=== PATIENT | male | born 1945 | race African-American/Black ===

== ENCOUNTER → 2016-10-26 | Outpatient (CLI) | payer MEDICARE, OTHER ==
[~2016-10-26] MED LIST: AMLO10TA2 OR; ATEN100T OR; CALC-242 OR; HYDR25TA4 OR; HYDROXYCHLOROQUINE PO; LISI40TA OR
[2016-10-26 09:26] LABS: Basophils # (auto) 0.1 uL; Basophils % (auto) 2.2 % (0.0-2.0); Eosinophils # (auto) 0.1 uL; Eosinophils % (auto) 1.6 % (0.0-7.0); Hematocrit 45.9 % (41.0-53.0); Hemoglobin 15.3 g/dL (13.5-17.5); Lymphocytes # (auto) 1.2 uL; Lymphocytes % (auto) 30.2 % (10.0-50.0); Mean Corpuscular Hemoglobin 32.2 pg (28.0-32.0); Mean Corpuscular Hgb Conc. 33.4 g/dL (32.0-36.0); Mean Corpuscular Volume 96.4 fL (80.0-100.0); Mean Platelet Volume 9.9 fL (7.4-10.4); Monocytes # (auto) 0.6 uL; Platelet Count (auto) 149 10^3/uL (140-450); Red Cell Distribution Width 12.6 % (11.6-16.0)
[2016-10-26 09:44] LABS: Albumin 4.4 g/dL (3.4-5.0); BUN/Creatinine Ratio 15.8; Bilirubin, Total 0.8 mg/dL (0.2-1.0); Potassium 4.3 mmol/L (3.5-5.1); Total Protein 7.7 g/dL (6.4-8.2)
== END | disposition home or self-care (01) ==
LOC: LAB 08:22
DX: L93.0 Discoid lupus erythematosus (principal); I10 Essential (primary) hypertension; M25.50 Pain in unspecified joint; D64.9 Anemia, unspecified
CPT/HCPCS: 36415; 80053; 85025; 85652; 86141

== ENCOUNTER → 2017-08-03 | Outpatient (CLI) | payer MEDICARE, OTHER ==
[2017-08-03 09:02] LABS: Basophils # (auto) 0 uL; Basophils % (auto) 0.7 % (0.0-2.0); Eosinophils # (auto) 0.1 uL; Eosinophils % (auto) 3.3 % (0.0-7.0); Hematocrit 41.9 % (41.0-53.0); Hemoglobin 14.4 g/dL (13.5-17.5); Lymphocytes # (auto) 1.4 uL; Lymphocytes % (auto) 33.7 % (10.0-50.0); Mean Corpuscular Hgb Conc. 34.3 g/dL (32.0-36.0); Mean Corpuscular Volume 96.2 fL (80.0-100.0); Mean Platelet Volume 9.2 fL (6.9-10.8); Monocytes # (auto) 0.5 uL; Monocytes % (auto) 10.8 % (0.0-12.0); Neutrophils # (auto) 2.2 uL; Neutrophils % (auto) 51.5 % (37.0-80.0); Nucleated Red Blood Cells % 0.1 %; Platelet Count (auto) 242 10^3/uL (140-450); Red Cell Distribution Width 13.3 % (11.8-14.3); White Blood Cell 4.2 10^3/uL (4.4-10.8)
[2017-08-03 09:24] LABS: BUN/Creatinine Ratio 16.7; Bilirubin, Total 0.5 mg/dL (0.2-1.0); Calcium 9.4 mg/dL (8.5-10.1); Potassium 3.9 mmol/L (3.5-5.1); Total Protein 7.7 g/dL (6.4-8.2)
== END | disposition home or self-care (01) ==
LOC: LAB 08:29
DX: I10 Essential (primary) hypertension (principal); M10.9 Gout, unspecified; M25.50 Pain in unspecified joint; M06.9 Rheumatoid arthritis, unspecified
CPT/HCPCS: 36415; 80053; 84550; 85025; 85652; 86141; 86160; 86225

== ENCOUNTER → 2018-04-06 | Outpatient (CLI) | payer MEDICARE, OTHER ==
[2018-04-06 09:07] LABS: Cholesterol 153 mg/dL (< 200); HDL Cholesterol 71 mg/dL (40-59); LDL Cholesterol 81 mg/dL (< 100); Triglycerides 46 mg/dL (< 150)
== END | disposition home or self-care (01) ==
LOC: LAB 07:26
PROVIDERS: ATTEND Internal Medicine
DX: I10 Essential (primary) hypertension (principal); L93.0 Discoid lupus erythematosus; M06.9 Rheumatoid arthritis, unspecified; E78.5 Hyperlipidemia, unspecified; Z79.899 Other long term (current) drug therapy
CPT/HCPCS: 36415; 80061; 82306

== ENCOUNTER → 2019-08-10 | Day surgery (SDC) | payer MEDICARE, OTHER ==
[2019-08-07 09:47] LABS: Basophils # (auto) 0 uL; Basophils % (auto) 0.7 % (0.0-2.0); Eosinophils # (auto) 0 uL; Hematocrit 42.3 % (41.0-53.0); Hemoglobin 14.8 g/dL (13.5-17.5); Lymphocytes # (auto) 1.1 uL; Lymphocytes % (auto) 27.5 % (10.0-50.0); Mean Corpuscular Hemoglobin 34.1 pg (28.0-32.0); Mean Corpuscular Hgb Conc. 34.9 g/dL (32.0-36.0); Mean Corpuscular Volume 97.6 fL (80.0-100.0); Monocytes # (auto) 0.5 uL; Monocytes % (auto) 11.8 % (0.0-12.0); Neutrophils # (auto) 2.3 uL; Nucleated Red Blood Cells % 0.2 %; Platelet Count (auto) 137 10^3/uL (140-450); Red Blood Cells 4.34 10^6/uL (4.5-5.90); Red Cell Distribution Width 14.2 % (11.8-14.3); White Blood Cell 3.9 10^3/uL (4.4-10.8)
[2019-08-07 10:06] LABS: INR < 0.93 (0.9-1.15); Partial Thromboplastin Time 26.4 sec (23.64-32.05)
[~2019-08-10] VITALS: Ht 175.3 cm; Wt 72.6 kg
[~2019-08-10] MED LIST changes: +AMLO10TA13 OR; -AMLO10TA2 OR; +SODIUM CHLORIDE LOCK 10 ML ONE; +diphenhdrAMINE HCL 50 MG/1 ML VL ONE
[2019-08-10] MEDS: fentaNYL CITRATE 100 MCG/2 ML VL ONE ×3 (10:31→10:39)
[2019-08-10] MEDS: MIDAZOLAM HCL 5 MG/ML-1ML VIAL ONE ×3 (10:31→10:39)
[2019-08-10 11:15] VITALS: BP 144/83
== END | disposition home or self-care (01) ==
LOC: GI 09:21
PROVIDERS: ATTEND Internal Medicine Gastroenterology
DX: Z12.11 Encounter for screening for malignant neoplasm of colon (principal); D12.3 Benign neoplasm of transverse colon; K64.8 Other hemorrhoids; K57.30 Diverticulosis of large intestine without perforation or abscess without bleeding; Z87.442 Personal history of urinary calculi; Z98.890 Other specified postprocedural states
CPT/HCPCS: 36415; 45380; 85025; 85610; 85730; 88305; J1200; J2250; J3010; J7030; 99153; G0500

== ENCOUNTER → 2022-08-16 | Outpatient (CLI) | payer MEDICARE, OTHER ==
[~2022-08-16] MED LIST changes: +AMLO-496 OR; -AMLO10TA13 OR; -LISI40TA OR; +LISI40TA11 OR; -SODIUM CHLORIDE LOCK 10 ML ONE; -diphenhdrAMINE HCL 50 MG/1 ML VL ONE
[2022-08-16 07:52] LABS: Basophils # (auto) 0 10 ^3/uL (0-0.2); Basophils % (auto) 1.1 % (0.0-2.0); Eosinophils # (auto) 0.1 10 ^3/uL (0-0.8); Eosinophils % (auto) 3.1 % (0.0-7.0); Hematocrit 42.2 % (41.0-53.0); Hemoglobin 14.5 g/dL (13.5-17.5); Lymphocytes # (auto) 1.4 10 ^3/uL (0.4-5.4); Lymphocytes % (auto) 36.4 % (10.0-50.0); Mean Corpuscular Hemoglobin 32.4 pg (28.0-32.0); Mean Corpuscular Hgb Conc. 34.3 g/dL (32.0-36.0); Mean Corpuscular Volume 94.7 fL (80.0-100.0); Monocytes # (auto) 0.5 10 ^3/uL (0-1.3); Monocytes % (auto) 13.8 % (0.0-12.0); Neutrophils # (auto) 1.7 10 ^3/uL (1.6-8.6); Neutrophils % (auto) 45.6 % (37.0-80.0); Nucleated Red Blood Cells % 0.1 %; Red Blood Cells 4.46 10^6/uL (4.5-5.90); Red Cell Distribution Width 13.5 % (11.8-14.3); White Blood Cell 3.8 10^3/uL (4.4-10.8)
[2022-08-16 08:34] LABS: Albumin 3.6 g/dL (3.4-5.0); Potassium 4.1 mmol/L (3.5-5.1)
[2022-08-16 08:43] LABS: BUN/Creatinine Ratio 18.8; Bilirubin, Total 0.7 mg/dL (0.2-1.0); Calcium 9.4 mg/dL (8.5-10.1); Total Protein 7.1 g/dL (6.4-8.2)
[2022-08-16 10:21] LABS: T3 Total 0.64 ng/mL (0.60-1.81)
[2022-08-16 11:50] LABS: Prostate Specific Antigen 6.58 ng/mL (0.0-4.0)
== END | disposition home or self-care (01) ==
LOC: LAB 07:29
PROVIDERS: ATTEND Internal Medicine
DX: I10 Essential (primary) hypertension (principal); R97.20 Elevated prostate specific antigen [PSA]; L93.0 Discoid lupus erythematosus; Z12.5 Encounter for screening for malignant neoplasm of prostate
CPT/HCPCS: 36415; 80053; 80061; 82274; 84153; 84154; 84443; 84480; 85025

== ENCOUNTER → 2022-08-30 | Outpatient (CLI) | payer MEDICARE, OTHER ==
[2022-08-30 08:29] LABS: Basophils # (auto) 0 10 ^3/uL (0-0.2); Basophils % (auto) 0.8 % (0.0-2.0); Eosinophils # (auto) 0.1 10 ^3/uL (0-0.8); Eosinophils % (auto) 2.7 % (0.0-7.0); Hemoglobin 14.5 g/dL (13.5-17.5); Lymphocytes # (auto) 1.4 10 ^3/uL (0.4-5.4); Lymphocytes % (auto) 36.2 % (10.0-50.0); Mean Corpuscular Hemoglobin 33.1 pg (28.0-32.0); Mean Corpuscular Hgb Conc. 35.3 g/dL (32.0-36.0); Mean Corpuscular Volume 93.6 fL (80.0-100.0); Monocytes # (auto) 0.6 10 ^3/uL (0-1.3); Monocytes % (auto) 14.6 % (0.0-12.0); Neutrophils # (auto) 1.8 10 ^3/uL (1.6-8.6); Neutrophils % (auto) 45.7 % (37.0-80.0); Nucleated Red Blood Cells % 0.1 %; Red Blood Cells 4.38 10^6/uL (4.5-5.90); Red Cell Distribution Width 13.7 % (11.8-14.3); White Blood Cell 3.9 10^3/uL (4.4-10.8)
== END | disposition home or self-care (01) ==
LOC: LAB 08:10
PROVIDERS: ATTEND Internal Medicine
DX: D72.819 Decreased white blood cell count, unspecified (principal)
CPT/HCPCS: 36415; 85025

== ENCOUNTER → 2024-09-17 | Outpatient (CLI) | payer MEDICARE, OTHER ==
[~2024-09-17] MED LIST changes: -AMLO-496 OR; +AMLO1TAB23 OR; -LISI40TA11 OR; +LISI40TA16 OR
== END | disposition home or self-care (01) ==
LOC: LAB 06:51
PROVIDERS: ATTEND Internal Medicine
DX: M85.89 Other specified disorders of bone density and structure, multiple sites (principal); Z79.899 Other long term (current) drug therapy
CPT/HCPCS: 82306

== ENCOUNTER → 2025-05-20 | Outpatient (CLI) | payer MEDICARE, OTHER ==
[~2025-05-20] VITALS: Ht 175.3 cm; Wt 72.6 kg
[~2025-05-20] MED LIST changes: +ACET-1079 PO; +FOLITAB22 PO; +METH2.5T PO
[2025-05-20 11:32] LABS: Hematocrit 33.8 % (41.0-53.0); Hemoglobin 11.7 g/dL (13.5-17.5); Mean Corpuscular Hemoglobin 32.7 pg (28.0-32.0); Mean Corpuscular Volume 94.0 fL (80.0-100.0); Nucleated Red Blood Cells % 0.0 %
[2025-05-20 11:43] LABS: Alanine Aminotransferase 33 U/L (7-40); Alkaline Phosphatase 76 U/L (46-116); Anion Gap 10 (5-15); BUN/Creatinine Ratio 12.5 (10.0-20.0); Blood Urea Nitrogen 14 mg/dL (9-23); Carbon Dioxide 27 mmol/L (20-31); Chloride 102 mmol/L (98-107); Glucose 88 mg/dL (74-106); Potassium 4.6 mmol/L (3.5-5.1); Sodium 139 mmol/L (136-145)
[2025-05-20 11:44] LABS: Calcium 10.4 mg/dL (8.7-10.4); INR 1.08 (0.9-1.15); Partial Thromboplastin Time 30.0 SEC (24.5-34.5); Prothrombin Time 11.4 sec (9.3-11.8); Total Protein 7.4 g/dL (5.7-8.2)
[2025-05-20 11:45] LABS: Albumin 4.5 g/dL (3.2-4.8); Bilirubin, Total 0.3 mg/dL (0.2-1.0)
[2025-05-20 12:02] LABS: Urine Protein, UAD 1+ (Negative)
== END | disposition home or self-care (01) ==
LOC: LAB 10:20 → EDSTATUS 05-21 07:00
PROVIDERS: ATTEND Urology
DX: N20.0 Calculus of kidney (principal); Z53.8 Procedure and treatment not carried out for other reasons
CPT/HCPCS: 36415; 80053; 81001; 85025; 85610; 85730; 87086; 87088; 87186

== ENCOUNTER 2025-07-23 11:03 | Outpatient (CLI) | payer MEDICARE, OTHER ==
[~2025-07-23 11:03] MED LIST changes: -CALC-242 OR
[2025-07-23 11:30] LABS: Hematocrit 38.3 % (41.0-53.0); Hemoglobin 13.4 g/dL (13.5-17.5); Mean Corpuscular Hemoglobin 33.2 pg (28.0-32.0); Mean Corpuscular Volume 94.7 fL (80.0-100.0); Nucleated Red Blood Cells % 0.0 %
[2025-07-23 11:43] LABS: INR 1.03 (0.9-1.15); Partial Thromboplastin Time 27.9 SEC (24.5-34.5); Prothrombin Time 10.9 sec (9.3-11.8)
[2025-07-24] MEDS ORDERED: TADA5TAB11 PO (10:03)
[2025-07-24] MEDS ORDERED: FOLI-119 PO (10:03)
[2025-07-24] MEDS ORDERED: HYDR200T36 PO (10:04)
== END 2025-07-23 17:00 | disposition home or self-care (01) ==
LOC: LAB 11:03
PROVIDERS: ATTEND Urology
DX: N20.0 Calculus of kidney (principal); M79.89 Other specified soft tissue disorders; D53.8 Other specified nutritional anemias
CPT/HCPCS: 36415; 85025; 85610; 85730

== ENCOUNTER 2025-07-26 07:37 | Outpatient (CLI) | payer MEDICARE, OTHER ==
[~2025-07-26] VITALS: Ht 175.3 cm; Wt 74.8 kg
[~2025-07-26 07:37] MED LIST changes: -ACET-1079 PO; +FOLI-119 PO; -FOLITAB22 PO; +HYDR200T36 PO; -HYDROXYCHLOROQUINE PO; +TADA5TAB11 PO
--- NOTE | 2025-07-26 09:33 | ECG ---
[facility] Test Date: 2025-07-26 Test Time: 08:50:21 Pat Name: KANDY BEAN Department: Room: Gender: M [employer] Developer: SADE : 1945 Requested By: OLIVE DARBY Order Number: [id number] Reading MD: Shubham Henderson Measurements Intervals [place] Rate: 48 P: 67 [place]: 230 QRS: -17 QRSD: 152 T: 8 QT: 550 QTc: 491 Interpretive Statements Marked sinus bradycardia with 1st degree AV block Right bundle branch block T wave abnormality, consider lateral ischemia Electronically Signed On 07-26-2025 12:11:55 PDT by Shubham Henderson Please click the below link to view image of tracing.
[2025-07-26] MEDS: fentaNYL CITRATE 100 MCG/2 ML VL ONE (10:14)
[2025-07-26] MEDS: LIDOCAINE 2%HCL (LOCAL ANESTH.) INJ 20ML MDV ONE (10:15)
[2025-07-26] MEDS: MIDAZOLAM HCL 2MG/2ML 2ml VIAL (1mg/ml) ONE (10:15)
[2025-07-26 11:09] VITALS: BP 122/53; PULSE 50; RESP 11; TEMP 98.3; O2SAT 98
[2025-07-26 11:24] VITALS: BP 114/52; PULSE 61; RESP 12; O2SAT 98
[2025-07-26 11:39] VITALS: BP 117/49; PULSE 45; RESP 12; O2SAT 98
[2025-07-26 11:54] VITALS: BP 123/49; PULSE 48; RESP 17; O2SAT 97
--- NOTE | 2025-07-26 12:01 | DVH ---
XY PERCUTANEOUS NEPHROSTOMY, US US GUIDANCE FOR NEEDLE PLACEME, HISTORY: LT NEPHRO URETERAL SHEATH PROCEDURE: Informed consent was obtained. The patient was placed on the fluoroscopic table in a prone position and IV sedation administered. The left flank was prepped with chlorhexidine which was allow ed to dry and draped in the usual sterile fashion. Time out was performed. and the soft tissues infil trated with 1% lidocaine local anesthetic. Under ultrasound guidance, a 21 gauge Accu Stick needle wa s advanced into a dilated middle pole posterior calyx, and a contrast and nephrostogram performed. O vane a mandril wire, exchange was made to a non-vascular access set, through which was advanced an 0.0 35 wire. Wire and catheter were advanced down the ureter and into the bladder. A 5 Bhutanese KMP cathete r advanced into the bladder. The catheter was secured in place. A sterile dressing was applied. No im mediate complication was identified. DAP 38.1 FLUOROSCOPY TIME: 5.45 minutes. CONTRAST USED: 20 mL. SEDATION: Dr. Jeanne Madrid was personally responsible for the administration of moderate sedation during the procedure performed, including the use of an independent trained observer who had no other duties during the procedure. The drugs utilized were IV fentanyl and versed (see nursing log for details). The total time of supervision by the attending physician was approximately 30 minutes. FINDINGS: Left renal pelvis stone. New 5 guamanian nephroureteral catheter via a posterior middle hussein e calyceal access. Contrast flows freely into the bladder. IMPRESSION: Left renal stone , status post placement of 5 guamanian left percutaneous nephroureteral catheter for a ccess for subsequent planned PCNL.
--- NOTE | 2025-07-26 12:01 | DVH ---
XY PERCUTANEOUS NEPHROSTOMY, US US GUIDANCE FOR NEEDLE PLACEME, HISTORY: LT NEPHRO URETERAL SHEATH PROCEDURE: Informed consent was obtained. The patient was placed on the fluoroscopic table in a prone position and IV sedation administered. The left flank was prepped with chlorhexidine which was allow ed to dry and draped in the usual sterile fashion. Time out was performed. and the soft tissues infil trated with 1% lidocaine local anesthetic. Under ultrasound guidance, a 21 gauge Accu Stick needle wa s advanced into a dilated middle pole posterior calyx, and a contrast and nephrostogram performed. O vane a mandril wire, exchange was made to a non-vascular access set, through which was advanced an 0.0 35 wire. Wire and catheter were advanced down the ureter and into the bladder. A 5 Ukrainian KMP cathete r advanced into the bladder. The catheter was secured in place. A sterile dressing was applied. No im mediate complication was identified. DAP 38.1 FLUOROSCOPY TIME: 5.45 minutes. CONTRAST USED: 20 mL. SEDATION: Dr. Jeanne Madrid was personally responsible for the administration of moderate sedation during the procedure performed, including the use of an independent trained observer who had no other duties during the procedure. The drugs utilized were IV fentanyl and versed (see nursing log for details). The total time of supervision by the attending physician was approximately 30 minutes. FINDINGS: Left renal pelvis stone. New 5 congolese nephroureteral catheter via a posterior middle hussein e calyceal access. Contrast flows freely into the bladder. IMPRESSION: Left renal stone , status post placement of 5 congolese left percutaneous nephroureteral catheter for a ccess for subsequent planned PCNL.
== END 2025-07-26 17:00 | disposition home or self-care (01) ==
LOC: CATH 07:37
PROVIDERS: ATTEND Radiology Diagnostic Radiology
DX: N20.0 Calculus of kidney (principal); I44.0 Atrioventricular block, first degree; I45.10 Unspecified right bundle-branch block
CPT/HCPCS: 74425; 76942; 93005; J2250

== ENCOUNTER 2025-07-26 12:57 | Inpatient (IN) | payer MEDICARE, OTHER ==
[~2025-07-26] VITALS: Ht 167.6 cm; Wt 71.7 kg
[2025-07-26] VITALS (7 sets, daily range): BP systolic 107–121; BP diastolic 45–68; PULSE 79–94; RESP 16–21; TEMP 97.9–98.2; O2SAT 93–99
[2025-07-26] MEDS: ONDANSETRON HCL 4 MG/2 ML VIAL ONE (13:11)
[2025-07-26] MEDS: ATROPINE SULF 1 MG/10ml SYR ONE (13:11)
[2025-07-26] MEDS: GLUCAGON EMERG KIT 1mg/1ml IV ONE (13:12)
[2025-07-26] MEDS: ATROPINE SULF 1 MG/10ml SYR IV ONE (13:12)
[2025-07-26] MEDS: ONDANSETRON HCL 4 MG/2 ML VIAL IV ONE (13:12)
[2025-07-26] MEDS: GLUCAGON EMERG KIT 1mg/1ml ONE (13:12)
--- NOTE | 2025-07-26 13:13 | ED.PDOC ---
HPI Comments Kandy Angeles JR Is a 79-yea-old male, with past medical history of BPH, hypertension, nephrolithiasis and SLE. The patient came to [facility] today for out patient nephostomy tube placement, while he was waiting in the lobby, he became unresponsive and the rapid response team was called. In the ER the patient responded to painful stimulus, he was disoriented, BP was 124/44mmHg, bradycardic 47bpm, glucose 160mg/dl, On further questioning the patient reports he is on Atenolol medication and sometimes has a low heart rate. Patient denies fever, chills, shortness of breath, head trauma or injury, weakness, dizziness, abdominal pain, nausea, vomiting, diarrhea, or urinary symptoms. The patient will be admitted for further assessment and management. Attestation note: Dr. Monteiro: I was the supervising attending for this ED encounter. Please see the resident's notes. I was available for questions and consultations. Differential diagnosis: MDM: MDM: patient presented with the above HPI.--bradycardia/syncope----workup was initiated. patient was found with the above mentioned diagnosis. the following medications were ordered: please refer to order lists of meds and tests obtained by myself Dr. Monteiro. Patient ED course and VS have been stabilized. Patient has been reassessed in the ED and remained in a stable condition. Pertinent incidental findings were discussed with the patient and/or family. Patient/family voices understanding and is agreeable with plan. Patient has been observed in the ED adequate length of time to insure improvement/stability. Escalation of care considered: Consideration of escalation to observation or admission Management of symptomatic bradycardia, patient was given atropine, glucagon because he is on beta-blockers, fluids. Potassium replacement. Patient was ADMITTED to the medicine team for further evaluation and treatment of their presentation. All the reports of any imaging studies that were ordered by myself were reviewed by myself. Chief Complaint: ALOC Time Seen by MD: 13:08 Primary Care Provider: Alexsadnra QUEEN Reviewed Notes: Nurses Notes, Medications, Allergies Allergies: Coded Allergies: NO KNOWN ALLERGIES (Unverified , 10/09/10) Home Meds Active Scripts Ciprofloxacin Hcl (Cipro) 250 Mg Tab, 250 MG PO BID for 5 Days, #10 TAB Prov:CORRINA MORGAN MD 08/01/25 Reported Medications Dorzolamide-Timolol (Dorzolamide Hcl/Timolol M) 1 Ml Jenn, EACHEYE 07/30/25 Latanoprost (LATANOPROST) 0.005 % Jenn, EACHEYE 07/30/25 Hydroxychloroquine Sulfate (Hydroxychloroquine Sulfat) 200 Mg Tab, 200 MG PO DAILY for 30 Days, MG 07/24/25 Tadalafil (Cialis) 5 Mg Tab, 10 MG PO DAILY, TAB 07/24/25 Folic Acid (Folic Acid) 1 Mg Tab, 1 MG PO DAILY 07/24/25 Methotrexate (Methotrexate) 2.5 Mg Tab, 4 TAB PO QWEEKLY 05/20/25 Hydrochlorothiazide (Hydrochlorothiazide) 25 Mg Tab, 25 MG OR DAILY, #1 10/09/10 Amlodipine Besylate (Amlodipine Besylate) 10 Mg Tab, 10 MG OR DAILY, #1 10/09/10 Atenolol (Atenolol) 100 Mg Tab, 100 MG OR DAILY, #1 10/09/10 Lisinopril (Lisinopril) 40 Mg Tab, 40 MG OR DAILY, #1 10/09/10 Information Source: Patient Mode of Arrival: Wheelchair (With rapid response team. ) Severity: Moderate Timing: Minutes Duration: Since onset Past Medical History PAST MEDICAL HISTORY: HTN Past Medical History (Other): BPH, hypertension, nephrolithiasis and SLE. Surgical History (Other): Prostate surgery, Left meniscus repair, nephrostomy tube Family History Family History: Reviewed,noncontributory to illness Social History Smoker: Non-Smoker Alcohol: Occasionally Drugs: Denies Drug Use Lives In: Home Constitutional: reports: fatigue; denies: chills, diaphoresis, fever, malaise, sweats, weakness, others EENTM: denies: blurred vision, double vision, ear bleeding, ear discharge, ear drainage, ear pain, ear ringing, eye pain, eye redness, hearing loss, mouth pain, mouth swelling, nasal discharge, nose bleeding, nose congestion, nose pain, photophobia, tearing, throat pain, throat swelling, voice changes, others Respiratory: denies: cough, hemoptysis, orthopnea, SOB at rest, shortness of breath, SOB with excertion, stridor, wheezing, others Cardiovascular: denies: chest pain, dizzy spells, diaphoresis, Dyspnea on exertion, edema, irregular heart beat, left arm pain, lightheadedness, palpitations, PND, syncope, others Gastrointestinal: denies: abdomen distended, abdominal pain, blood streaked bowels, constipated, diarrhea, dysphagia, difficulty swallowing, hematemesis, melena, nausea, poor appetite, poor fluid intake, rectal bleeding, rectal pain, vomiting, others Genitourinary: denies: burning, dysuria, flank pain, frequency, hematuria, incontinence, penile discharge, penile sore, pain, testicle pain, testicle swelling, urgency, others Neurological: reports: dizziness, fainting; denies: headache, left sided numbness, left sided weakness, numbness, paresthesia, pre-existing deficit, right sided numbness, right sided weakness, seizure, speech problems, tingling, tremors, weakness, others Musculoskeletal: denies: back pain, gout, joint pain, joint swelling, muscle pain, muscle stiffness, neck pain, others Integumetry: denies: bruises, change in color, change in hair/nails, dryness, laceration, lesions, lumps, rash, wounds, others Hematologic/Lymphatic: denies: anemia, blood clots, easy bleeding, easy bruising, swollen glands, others Endocrine: denies: excessive hunger, excessive sweating, excessive thirst, excessive urination, flushing, intolerance to cold, intolerance to heat, unexplained weight gain, unexplained weight loss, others Physical Exam General Appearance: Mild Distress HEENT: Normal ENT Inspection, Pharynx Normal, TMs Normal Neck: Full Range of Motion, Non-Tender, Normal, Normal Inspection Respiratory: Chest Non-Tender, Lungs Clear, No Accessory Muscle Use, No Respiratory Distress, Normal Breath Sounds Cardiovascular: Bradycardia, No Edema, No JVD, No Murmur, No Gallop, Normal Peripheral Pulses, Regular Rate/Rhythm Breast Exam: Deferred Gastrointestinal: No Organomegaly, Non Tender, No Pulsatile Mass, Normal Bowel Sounds, Soft Genitalia: Deferred Pelvic: Deferred Rectal: Deferred Extremities: No calf tenderness, Normal capillary refill, Normal inspection, Normal range of motion, Non-tender, No pedal edema Musculoskeletal : Apperance: Normal Neurologic: Alert, healthcare prof II-XII nml as Tested, No Motor Deficits, Normal Affect, Normal Mood, No Sensory Deficits Cerebellar Function: Normal Reflexes: Normal Skin: Dry, Normal Color, Warm Lymphatic: No Adenopathy Was a procedure done? Was a procedure done?: No CP Differential Dx Differential Diagnosis: AV Block 1st Degree, AV Block 2nd Degree, AV Block 3rd Degree, Digoxin Toxicity, Electrolyte Disorder, Heart Failure, Hypoxia, Pacemaker Malfunction, Other (Syncope) X-Ray, Labs, Meds, VS Vital Signs Date Time Temp Pulse Resp B/P (MAP) Pulse Ox O2 Delivery O2 Flow Rate FiO2 07/26/25 13:10 70 07/26/25 13:06 97.7 47 17 124/44 97 97.7 Lab Test 07/26/25 13:00 Range/Units White Blood Count 5.6 4.4-10.8 10^3/uL Red Blood Count 4.12 L 4.5-5.90 10^6/uL Hemoglobin 13.5 13.5-17.5 g/dL Hematocrit 39.3 L 41.0-53.0 % Mean Corpuscular Volume 95.2 80.0-100.0 fL Mean Corpuscular Hemoglobin 32.7 H 28.0-32.0 pg Mean Corpuscular Hemoglobin Concent 34.4 32.0-36.0 g/dL Red Cell Distribution Width 15.9 H 11.8-14.3 % Platelet Count 194 140-450 10^3/uL Mean Platelet Volume 9.0 6.9-10.8 fL Neutrophils (%) (Auto) 84.7 H 37.0-80.0 % Lymphocytes (%) (Auto) 12.7 10.0-50.0 % Monocytes (%) (Auto) 0.7 0.0-12.0 % Eosinophils (%) (Auto) 1.6 0.0-7.0 % Basophils (%) (Auto) 0.3 0.0-2.0 % Neutrophils # (Auto) 4.8 1.6-8.6 10 ^3/uL Lymphocytes # (Auto) 0.7 0.4-5.4 10 ^3/uL Monocytes # (Auto) 0 0-1.3 10 ^3/uL Eosinophils # (Auto) 0.1 0-0.8 10 ^3/uL Basophils # (Auto) 0 0-0.2 10 ^3/uL Nucleated Red Blood Cells 0.1 % D-Dimer, Quantitative 2.45 H 0.0-0.49 mg/L FEU Sodium Level 142 136-145 mmol/L Potassium Level 3.1 L 3.5-5.1 mmol/L Chloride Level 106 98-107 mmol/L Carbon Dioxide Level 25 20-31 mmol/L Anion Gap 11 5-15 Blood Urea Nitrogen 17 9-23 mg/dL Creatinine 1.33 H 0.700-1.30 mg/dL Glomerular Filtration Rate Calc 55 >90 mL/min BUN/Creatinine Ratio 12.8 10.0-20.0 Serum Glucose 151 H 74-106 mg/dL Hemoglobin A1c 5.4 <5.7 % A1C Calcium Level 9.2 8.7-10.4 mg/dL Total Bilirubin 0.7 0.2-1.0 mg/dL Aspartate Amino Transferase (AST) 22 13-40 U/L Alanine Aminotransferase (ALT) 14 7-40 U/L Alkaline Phosphatase 89 46-116 U/L Troponin I High Sensitivity 64 *H </=54 ng/L Total Protein 7.0 5.7-8.2 g/dL Albumin 4.1 3.2-4.8 g/dL [place] [id number] Ph: [phone] DIAGNOSTIC IMAGING Diagnostic Imaging Report : [id number] Signed PATIENT: KANDY BEAN JR EACCT: [id number] UNIT: [id number] : 1945 LOC: ER ROOM / BED: / AGE / SEX: 79 / M ADM STATUS: REG ER SERVICE 1308 ORDERING PHYSICIAN: CHARITO SALEEM RESIDENT PROCEDURE(s): CXR1 - CHEST XRAY 1 VIEW REASON: baseline ORDER NUMBER(s): [id number], ACCESSION NUMBER(s): [id number] CHEST RADIOGRAPH Indication: baseline Technique: Single frontal view of the chest was obtained Comparison: XY CHEST TWO VIEWS ROUTINE on DOS: 05/20/25 FINDINGS: Lines and Tubes: None Lungs: No focal consolidation. Pleura: No effusion. No pneumothorax. Cardiomediastinal contours: Unremarkable Bones: No acute osseous abnormality. IMPRESSION: No acute cardiopulmonary disease. ATED BY: NAOMI ARIZA MD DICTATED DATE/TIME: 07/26/25 1348 SIGNED BY: NAOMI ARIZA MD SIGNED DATE/TIME: 07/26/25 1348 CC: X-Ray, Labs, Meds, VS Comment 1330 The patient was re-evaluated after ER management with atropin and glucagon. The patient is now alert, oriented x3 Denies headache, dizziness, chest pain, palpitation or other symptoms. Troponins: 64 and 66 The patient will be admitted for further assessment and management. Time of 1ST Reevaluation: 13:30 Reevaluation 1ST: Improved Patient Education/Counseling: Diagnosis, Treatment, Prognosis, Need For Follow Up Family Education/Counseling: Diagnosis, Treatment, Prognosis, Need For Follow Up SEPSIS Sepsis Screen Date sepsis recognized/suspect: Jul 26, 2025 Time Sepsis recognized/suspect: 1300 Recent Procedure: No On Antibiotic Therapy: No Respiratory Rate >20: No Heart Rate >90: No Temp<36 C (96.8 F) or >38.3 C: No SBP <90 or MAP <65 mmHG: No New Acute Mental Status Change: Yes Is the patient on CPAP, BIPAP,: No Physician Orders Chest Xray 1 View (07/26/25 13:08) Electrocardigram (07/26/25 13:08) Electrocardigram (07/26/25 14:08) Electrocardigram (07/26/25 16:08) Vital Signs Date Time Temp Pulse Resp B/P (MAP) Pulse Ox O2 Delivery O2 Flow Rate FiO2 07/26/25 13:10 70 07/26/25 13:06 97.7 47 17 124/44 97 97.7 Laboratory Tests Test 07/26/25 13:00 White Blood Count 5.6 10^3/uL (4.4-10.8) Departure 1 Departure Time of Disposition: 13:34 Impression: Primary Impression: Symptomatic bradycardia Additional Impressions: Syncope and collapse Elevated troponin Disposition: ADMITTED INPATIENT Admit to: Tele Condition: Guarded e-Prescriptions Ciprofloxacin Hcl (Cipro) 250 Mg Tab 250 MG PO BID for 5 Days, #10 TAB Prov: CORRINA MORGAN MD 08/01/25 Discharged With: Self Comments Goals of care discussed with the patient > 35 min. Discussed plan of care with Dr. Monteiro Code status: Full code PCP: Dr. Queen Plan discussed with: Patient, the patient agrees with the admission plan. Critical Care Note Critical Care Time?: Yes (45 min-critical care time only) Stability Stability form required: No Heart Score Heart Score: Heart Score Response (Comments) Value History Moderate Suspicious 1 EKG Normal 0 Age >65 2 Risk Factors 1 or 2 risk factors 1 Troponin >3 x's Normal limit 2 Total 6 CHARITO SALEEM Jul 26, 2025 13:13 ELIO MONTEIRO DO Jul 26, 2025 13:34
[2025-07-26 13:17] LABS: Hematocrit 39.3 % (41.0-53.0); Hemoglobin 13.5 g/dL (13.5-17.5); Mean Corpuscular Hemoglobin 32.7 pg (28.0-32.0); Mean Corpuscular Volume 95.2 fL (80.0-100.0); Nucleated Red Blood Cells % 0.1 %
[2025-07-26 13:29] LABS: Alanine Aminotransferase 14 U/L (7-40); Albumin 4.1 g/dL (3.2-4.8); Alkaline Phosphatase 89 U/L (46-116); Anion Gap 11 (5-15); BUN/Creatinine Ratio 12.8 (10.0-20.0); Blood Urea Nitrogen 17 mg/dL (9-23); Calcium 9.2 mg/dL (8.7-10.4); Carbon Dioxide 25 mmol/L (20-31); Chloride 106 mmol/L (98-107); Sodium 142 mmol/L (136-145); Total Protein 7.0 g/dL (5.7-8.2)
[2025-07-26 13:30] LABS: Bilirubin, Total 0.7 mg/dL (0.2-1.0); Glucose 151 mg/dL (74-106); Potassium 3.1 mmol/L (3.5-5.1)
--- NOTE | 2025-07-26 13:50 | DVH ---
CHEST RADIOGRAPH Indication: baseline Technique: Single frontal view of the chest was obtained Comparison: XY CHEST TWO VIEWS ROUTINE on DOS: 05/20/25 FINDINGS: Lines and Tubes: None Lungs: No focal consolidation. Pleura: No effusion. No pneumothorax. Cardiomediastinal contours: Unremarkable Bones: No acute osseous abnormality. IMPRESSION: No acute cardiopulmonary disease.
[2025-07-26] MEDS ORDERED: DEXTROSE (50%) 50ML SYRG IV PRN (14:00)
[2025-07-26] MEDS ORDERED: ACETAMINOPHEN 325 MG TAB PO PRN (14:00)
[2025-07-26] MEDS ORDERED: NITROGLYCERIN 0.4 MG SL TAB SL PRN (14:00)
[2025-07-26] MEDS ORDERED: ONDANSETRON HCL 4 MG/2 ML VIAL IV PRN (14:00)
[2025-07-26] MEDS ORDERED: HYDROcodone-ACET 5/325MG TAB PO PRN (14:00)
--- NOTE | 2025-07-26 14:01 | DVHHP2 ---
History of Present Illness Reason for Visit: ALOC History of Present Illness Иван Lind JR is a 71-year-old male with past medical history of right kidney stone removal, prostate surgery, left knee surgery, hypertension, nephrolithiasis, and SLE who presents to the ED while in the lobby with a rapid response called. Patient reports that he was here for a preop checkup for a surgery planned for next week for his kidney stone to be removed, while waiting for the 2nd preop check he told his that he was not feeling well and was feeling fatigued. Patient's Little at the bedside states that she was trying to wake him up and could not wake him up. She reports he was trying to go to sleep but did not realize he had passed out. Patient was sitting on a wheelchair in the lobby and denies falling to the ground or striking his head. Patient endorses that he is compliant with his medications and did take his hydroxychloroquine and amlodipine today. Patient denies any recent trauma or injury, recent sick contacts, recent travels, recent ingestion of spoiled food, chest pain, shortness of breath, fever, chills, weakness, dizziness, abdominal pain, nausea, vomiting, diarrhea, or urinary symptoms. Patient reports that he ambulates without any DMEs. Cardiovascular: HTN Past Medical History Nephrolithiasis SLE Past Surgical History: Other (Kidney stone removal, prostate surgery, and left knee surgery) Family History: Other (Both parents ) Smoke: No ALCOHOL: occassional Drugs: None Lives: with Family Domestic Violence: Neg Review of Systems Neurological: Other (ALOC) Allergies: Coded Allergies: NO KNOWN ALLERGIES (Unverified , 10/09/10) Exam Vital Signs Vital Signs Date Time Temp Pulse Resp B/P (MAP) Pulse Ox O2 Delivery O2 Flow Rate FiO2 07/26/25 13:06 97.7 47 17 124/44 97 97.7 General Appearance: Alert, Oriented X3, Cooperative, No acute distress HEENT: Atraumatic, PERRLA, EOMI, Mucous membr. moist/pink Respiratory: Clear to auscultation, Normal air movement Cardiovascular: Normal S1, Normal S2, No murmurs Abdominal: Normal bowel sounds, Soft Extremities: No cyanosis, No edema, Normal pulses Skin: No significant lesion Neuro: Normal speech, Normal tone, Sensation intact Psych/Mental Status: Mental status NL, Mood NL Labs/Xrays Labs Test 07/26/25 13:00 Range/Units White Blood Count 5.6 4.4-10.8 10^3/uL Red Blood Count 4.12 L 4.5-5.90 10^6/uL Hemoglobin 13.5 13.5-17.5 g/dL Hematocrit 39.3 L 41.0-53.0 % Mean Corpuscular Volume 95.2 80.0-100.0 fL Mean Corpuscular Hemoglobin 32.7 H 28.0-32.0 pg Mean Corpuscular Hemoglobin Concent 34.4 32.0-36.0 g/dL Red Cell Distribution Width 15.9 H 11.8-14.3 % Platelet Count 194 140-450 10^3/uL Mean Platelet Volume 9.0 6.9-10.8 fL Neutrophils (%) (Auto) 84.7 H 37.0-80.0 % Lymphocytes (%) (Auto) 12.7 10.0-50.0 % Monocytes (%) (Auto) 0.7 0.0-12.0 % Eosinophils (%) (Auto) 1.6 0.0-7.0 % Basophils (%) (Auto) 0.3 0.0-2.0 % Neutrophils # (Auto) 4.8 1.6-8.6 10 ^3/uL Lymphocytes # (Auto) 0.7 0.4-5.4 10 ^3/uL Monocytes # (Auto) 0 0-1.3 10 ^3/uL Eosinophils # (Auto) 0.1 0-0.8 10 ^3/uL Basophils # (Auto) 0 0-0.2 10 ^3/uL Nucleated Red Blood Cells 0.1 % Sodium Level 142 136-145 mmol/L Potassium Level 3.1 L 3.5-5.1 mmol/L Chloride Level 106 98-107 mmol/L Carbon Dioxide Level 25 20-31 mmol/L Anion Gap 11 5-15 Blood Urea Nitrogen 17 9-23 mg/dL Creatinine 1.33 H 0.700-1.30 mg/dL Glomerular Filtration Rate Calc 55 >90 mL/min BUN/Creatinine Ratio 12.8 10.0-20.0 Serum Glucose 151 H 74-106 mg/dL Calcium Level 9.2 8.7-10.4 mg/dL Total Bilirubin 0.7 0.2-1.0 mg/dL Aspartate Amino Transferase (AST) 22 13-40 U/L Alanine Aminotransferase (ALT) 14 7-40 U/L Alkaline Phosphatase 89 46-116 U/L Troponin I High Sensitivity 64 *H </=54 ng/L Total Protein 7.0 5.7-8.2 g/dL Albumin 4.1 3.2-4.8 g/dL CHEST RADIOGRAPH Indication: baseline Technique: Single frontal view of the chest was obtained Comparison: XY CHEST TWO VIEWS ROUTINE on DOS: 05/20/25 FINDINGS: Lines and Tubes: None Lungs: No focal consolidation. Pleura: No effusion. No pneumothorax. Cardiomediastinal contours: Unremarkable Bones: No acute osseous abnormality. IMPRESSION: No acute cardiopulmonary disease. SEPSIS Sepsis Screen Date sepsis recognized/suspect: Jul 26, 2025 Time Sepsis recognized/suspect: 1300 Recent Procedure: No On Antibiotic Therapy: No Respiratory Rate >20: No Heart Rate >90: No Temp<36 C (96.8 F) or >38.3 C: No SBP <90 or MAP <65 mmHG: No New Acute Mental Status Change: Yes Is the patient on CPAP, BIPAP,: No Physician Orders Urinalysis (07/26/25 13:01) Chest Xray 1 View (07/26/25 13:08) Type And Screen (07/26/25 13:08) Electrocardigram (07/26/25 13:08) Electrocardigram (07/26/25 14:08) Electrocardigram (07/26/25 16:08) Troponin-I Hs (07/26/25 14:08) Troponin-I Hs (07/26/25 16:08) Vital Signs Date Time Temp Pulse Resp B/P (MAP) Pulse Ox O2 Delivery O2 Flow Rate FiO2 07/26/25 13:06 97.7 47 17 124/44 97 97.7 Laboratory Tests Test 07/26/25 13:00 White Blood Count 5.6 10^3/uL (4.4-10.8) Medications Medications Dose Ordered Sig/Rasheed Route Start Time Stop Time Status Last Admin Dose Admin Atropine Sulfate 1 mg ONCE ONCE IV 07/26/25 13:15 07/26/25 13:16 DC 07/26/25 13:12 1 MG Glucagon 1 mg ONCE ONCE IV 07/26/25 13:15 07/26/25 13:16 DC 07/26/25 13:12 1 MG Ondansetron HCl 4 mg ONCE ONCE IV 07/26/25 13:15 07/26/25 13:16 DC 07/26/25 13:12 4 MG Assessment/Plan Assessment/Plan Assessment Acute encephalopathy Acute hypoxic respiratory failure on supplemental oxygen Autonomic imbalance Hypokalemia PAGE likely prerenal Hyperglycemia Elevated troponins Alcohol use History of hypertension History of SLE History of nephrolithiasis History of right kidney stone removal History of prostate surgery History of left knee surgery Plan Admit to tele Supportive oxygen Replete lytes Antiemetics Glucagon given in ED Atropine given ED EKG noted Type and screen Trend troponins CT head ordered Echo ordered Orthostatics Carotid US UA UDS Hemoglobin A1c ISS and Accu-Cheks Diet Home medications reconciled DVT prophylaxis-SCDs PUD prophylaxis-not indicated no history of GERD or GI bleed Discussed plan of care with patient, patient's , and nurse Counseled patient on cessation of alcohol use 16005 Preventive counseling healthy eating habits, physical activity, and regular checkups Plan discussed with: Patient, Spouse Date of Service: Jul 26, 2025 Billing Provider: ALEJANDRA ESPARZA Common Visit Codes: 16580-[id number] INP/OBS CARE (HIGH) Secondary Visit Codes: [id number] COUNSELING IND ALEJANDRA ESPARZA Jul 26, 2025 14:01
[2025-07-26] MEDS ORDERED: MORPHINE SULFATE 4 MG/ML SYR/VIAL IV PRN ×2 (14:45)
[2025-07-26] MEDS: POTASSIUM CHL 20 Meq TABLET PO ONE (14:51)
--- NOTE | 2025-07-26 16:04 | DVH ---
CT HEAD WITHOUT CONTRAST INDICATION: aloc COMPARISON: None TECHNIQUE: CT of the head without intravenous contrast. RADIATION DOSE: CTDIvol: 52 mGy, DLP: 956 mGy*cm FINDINGS: There is no evidence of acute intracranial hemorrhage, extra-axial collection, mass effect, midline s hift, herniation or hydrocephalus. The ventricles, sulci and cisterns are age appropriate. The kent -white differentiation is intact. The visualized paranasal sinuses and mastoid air cells are clear. The surrounding soft tissues and osseous structures are unremarkable. IMPRESSION: 1. No evidence of acute intracranial hemorrhage, mass effect or hydrocephalus.
[2025-07-26] MEDS: InsuLIN REG 1unit/0.01ml Soln (100units/ml) SC SCH (17:00)
--- NOTE | 2025-07-26 17:27 | DVH ---
Carotid Duplex Clinical History: syncope Comparison: None Technique: Duplex doppler evaluation of the extracranial carotid and vertebral arteries including color doppler and spectral/pulsed waveform analysis was performed. Findings: RIGHT SIDE: The peak systolic velocities are 50.9 cm/s in the CCA, 96.6 cm/s in the ICA. The ICA/CCA ratio is 1. 9. The external carotid artery is patent with peak systolic velocity of 1 2.0 cm/s proximally. There is appropriate antegrade flow in the right vertebral artery. LEFT SIDE: The peak systolic velocities are 63.3 cm/s in the CCA, 118.0 cm/s in the ICA. The ICA/CCA ratio is 1 .9. The external carotid artery is patent with peak systolic velocity of 180.0 cm/s proximally. There is appropriate antegrade flow in the left vertebral artery. IMPRESSION: No hemodynamically significant stenosis noted in the right carotid system. No hemodynamically significant stenosis noted in the left carotid system. Reference: Radiology 2003; 229:340-346 Normal ICA PSV is <125 cm/sec and no plaque or intimal thickening is visible sonographically addition al criteria include ICA/CCA PSV ratio <2.0 and ICA EDV <40 cm/sec <50% ICA stenosis ICA PSV is <125 cm/sec and plaque or intimal thickening is visible sonographically additional criteria include ICA/CCA PSV ratio <2.0 and ICA EDV <40 cm/sec 50-69% ICA stenosis ICA PSV is 125-230 cm/sec and plaque is visible sonographically additional criter ia include ICA/CCA PSV ratio of 2.0-4.0 and ICA EDV of 40-100 cm/sec 70% ICA stenosis but less than near occlusion ICA PSV is >230 cm/sec and visible plaque and luminal n arrowing are seen at kent-scale and color doppler ultrasound (the higher the doppler parameters lie a vicki the threshold of 230 cm/sec, the greater the likelihood of severe disease) additional criteria i nclude ICA/CCA PSV ratio >4 and ICA EDV >100 cm/sec
[2025-07-26] MEDS: ACCU-CHEK COMFORT CURVE STRIP VI SCH (17:30)
[2025-07-26] MEDS: SODIUM CHLORIDE 0.9% 1,000 ML IV SCH (17:31)
[2025-07-27] VITALS (8 sets, daily range): BP systolic 104–136; BP diastolic 32–70; PULSE 62–128; RESP 16–19; TEMP 98.1–99; O2SAT 91–98
[2025-07-27 05:41] LABS: Hematocrit 34.3 % (41.0-53.0); Hemoglobin 11.9 g/dL (13.5-17.5); Mean Corpuscular Hemoglobin 33.2 pg (28.0-32.0); Mean Corpuscular Volume 95.5 fL (80.0-100.0); Nucleated Red Blood Cells % 0.1 %
[2025-07-27 05:58] LABS: Alanine Aminotransferase 14 U/L (7-40); Albumin 3.6 g/dL (3.2-4.8); Alkaline Phosphatase 72 U/L (46-116); Anion Gap 12 (5-15); BUN/Creatinine Ratio 14.8 (10.0-20.0); Blood Urea Nitrogen 19 mg/dL (9-23); Carbon Dioxide 21 mmol/L (20-31); Potassium 3.8 mmol/L (3.5-5.1); Sodium 143 mmol/L (136-145); Total Protein 6.1 g/dL (5.7-8.2)
[2025-07-27 05:59] LABS: Bilirubin, Total 0.8 mg/dL (0.2-1.0)
[2025-07-27 06:09] LABS: Calcium 8.5 mg/dL (8.7-10.4); Chloride 110 mmol/L (98-107); Glucose 108 mg/dL (74-106)
[2025-07-27] MEDS: IOHEXOL 350 MG/ML 100ML IJ ONE (10:18)
--- NOTE | 2025-07-27 11:26 | DVH ---
CTA Chest with intravenous contrast INDICATION: R/O PE COMPARISON: None TECHNIQUE: Multidetector spiral CTA of the chest was performed of the chest with intravenous contrast . PULMONARY ANGIOGRAPHY PROTOCOL was utilized using a bolus-tracking technique centered on the main p ulmonary artery. Axial, coronal and sagittal multiplanar and MIP reformats were performed. Radiation Dose : 1. Chest: CTDI volume is 18 mGy. Dose-length product is 690 mGy*cm The dose indicators for CT are the volume Computed Tomography (CT) Dose Index (CTDIvol) and the Dose Length Product (DLP), and are measured in units of mGy and mGy-cm, respectively. These indicators are not patient dose, but values generated from the CT scanner acquisition factors. The report includes radiation exposure data for exposures received during this examination. Findings: Pulmonary artery: No pulmonary embolism Lower neck: Normal thyroid. Lungs: Bibasilar atelectasis. No focal consolidation, pleural effusion or pneumothorax. Heart/Vascular Structures: Normal heart size. No pericardial effusion. Lymph Nodes: No adenopathy Pleura: No pleural effusion or significant pneumothorax. Musculoskeletal: No acute osseous abnormality. Soft tissues: Normal. Upper abdomen: Left nephrolithiasis with left nephrostomy tube in place. IMPRESSION: 1. No
--- NOTE | 2025-07-27 12:06 | DVH ---
Bilateral lower extremity venous Doppler INDICATION: R/O DVT TECHNIQUE: Duplex venous sonography was performed with real-time and flow sensitive images submitted for evaluation. FINDINGS: Normal phasic venous flow. Veins are fully compressible. No filling defects. IMPRESSION: 1. No evidence of deep vein thrombosis.
--- NOTE | 2025-07-27 12:16 | DVHPN2 ---
Subjective 79-year-old male with a history of left kidney stone, prostate surgery, hypertension, nephrolithiasis was scheduled to have a left nephrostomy tube and while in the lobby he had a syncopal episode and rapid response was called He failed dizzy and fatigued and became unconscious He was admitted for further evaluation He is status post left nephrostomy tube for left nephrolithiasis The patient is scheduled to have treatment for the kidney stone next week and he is requiring cardiac clearance Changes from previous H/P or p: Changes Objective Vitals Vital Signs Date Time Temp Pulse Resp B/P (MAP) Pulse Ox O2 Delivery O2 Flow Rate FiO2 07/27/25 08:58 98.5 67 18 123/59 (80) 97 98.5 07/27/25 08:00 Room Air* 0 21 Intake/Output Intake and Output 07/27/25 07:00 Intake Total 880 ml Balance 880 ml Intake Oral 880 ml # Voids 8 General Appearance: Alert, Oriented X3, Cooperative, No acute distress Lungs: Clear to auscultation, Normal air movement Cardiovascular: Regular rate, Normal S1, Normal S2, No murmurs Abdomen: Normal bowel sounds, Soft, No tenderness, No hepatospenomegaly Extremities: No edema Medications Current Medications Medications Dose Ordered Sig/Rasheed Route Start Time Stop Time Status Last Admin Dose Admin Acetaminophen/ Hydrocodone Bitart 1 tab Q4HP PRN PO 07/26/25 14:00 Ondansetron HCl 4 mg Q4HP PRN IV 07/26/25 14:00 Acetaminophen 650 mg Q6HP PRN PO 07/26/25 14:00 Morphine Sulfate 2 mg Q4HPRN PRN IV 07/26/25 14:45 Nitroglycerin 0.4 mg Q5MINP PRN SL 07/26/25 14:00 Morphine Sulfate 2 mg Q30M PRN IV 07/26/25 14:45 Diagnostic Test (Pha) 1 strip ACHS 07/26/25 17:00 07/27/25 06:53 1 STRIP Insulin Human Regular ACHS SC 07/26/25 17:00 Dextrose 50 ml UD PRN IV 07/26/25 14:00 Sodium Chloride 1,000 ml @ 75 mls/hr [id number] IV 07/26/25 15:45 07/27/25 06:47 75 MLS/HR Ceftriaxone Sodium 50 ml @ 100 mls/hr DAILY@09 IV 07/28/25 09:00 Laboratory Results Laboratory Tests 07/27/25 05:18 Chemistry Test 07/26/25 13:00 07/27/25 05:18 Albumin 4.1 g/dL (3.2-4.8) 3.6 g/dL (3.2-4.8) Calcium Level 9.2 mg/dL (8.7-10.4) 8.5 mg/dL (8.7-10.4) L Total Protein 7.0 g/dL (5.7-8.2) 6.1 g/dL (5.7-8.2) Coagulation Test 07/26/25 13:00 D-Dimer, Quantitative 2.45 mg/L FEU (0.0-0.49) H LFT Test 07/26/25 13:00 07/27/25 05:18 Alanine Aminotransferase (ALT) 14 U/L (7-40) 14 U/L (7-40) Alkaline Phosphatase 89 U/L (46-116) 72 U/L (46-116) Aspartate Amino Transferase (AST) 22 U/L (13-40) 26 U/L (13-40) Total Bilirubin 0.7 mg/dL (0.2-1.0) 0.8 mg/dL (0.2-1.0) HgA1c, TSH Test 07/26/25 13:00 Hemoglobin A1c 5.4 % A1C (<5.7) Assessment/Plan Assessment/Plan Left nephrolithiasis status post nephrostomy tube Syncope Rule out PE Hypertension NSTEMI Rule out UTI Elevated D-dimer Hypokalemia Plan Consult Cardiology Dr. Quintana CTA of the lungs negative for PE Venous Doppler of the lower extremities to rule out DVT Get a urinalysis Urine bacterial culture Start IV Rocephin for possible underlying UTI IV fluids Replace potassium as needed Full code Advance directives discussed for 20 minutes Plan discussed with: Patient My Orders Orders - CORRINA MORGAN MD Procedure Category Date Status Time * Cardiology Consult CONS 07/26/25 Transmitted 15:38 Sodium Chloride 0.9% PHA 07/26/25 In Process 15:45 Urinalysis LAB 07/27/25 Logged 09:25 Urine Bacterial HALLEY 07/27/25 Logged Culture 09:25 Ceftriaxone 1gm/50ml PHA 07/28/25 In Process (Royal) 09:00 Date of Service: Jul 27, 2025 Billing Provider: CORRINA MORGAN MD Common Visit Codes: 34540-[id number] INP/OBS CARE(HIGH) Secondary Visit Codes: 71450-[id number] CARE PLAN 30 MINUTES CORRINA MORGAN MD Jul 27, 2025 12:16
--- NOTE | 2025-07-27 14:48 | DVHINCON2 ---
Date of service: Jul 27, 2025 History of Present Illness HPI Patient is a 79-year-old gentleman who was in the hospital for nephrostomy tube exchange. Reportedly, the nephrostomy tube was exchanged and later on the patient was going to be evaluated for elective procedure to be done next week. While waiting, the patient had episode of nonresponding. He was taken to emergency room and was admitted for that episode. Assessment has been encephalopathy. Reportedly, heart rate did go down to 47 and reportedly there was some hypotension. Cardiology is involved for cardiac aspects of care. Patient is known to our practice from outside. Does take 100 mg of atenolol daily as outpatient. He is recently diagnosed to have pulmonary hypertension (right ventricular systolic pressure was assessed by echocardiogram to be 49 mm Hg). Patient denies any chest pain. He does not recall the episode. As outpatient, recently had CT scan of the chest which actually reported questionable biliary duct stone. Home Meds Reported Medications Hydroxychloroquine Sulfate (Hydroxychloroquine Sulfat) 200 Mg Tab, 200 MG PO DAILY for 30 Days, MG 07/24/25 Tadalafil (Cialis) 5 Mg Tab, 10 MG PO DAILY, TAB 07/24/25 Folic Acid (Folic Acid) 1 Mg Tab, 1 MG PO DAILY 07/24/25 Methotrexate (Methotrexate) 2.5 Mg Tab, 4 TAB PO QWEEKLY 05/20/25 Hydrochlorothiazide (Hydrochlorothiazide) 25 Mg Tab, 25 MG OR DAILY, #1 10/09/10 Amlodipine Besylate (Amlodipine Besylate) 10 Mg Tab, 10 MG OR DAILY, #1 10/09/10 Atenolol (Atenolol) 100 Mg Tab, 100 MG OR DAILY, #1 10/09/10 Lisinopril (Lisinopril) 40 Mg Tab, 40 MG OR DAILY, #1 10/09/10 Discontinued Reported Medications Acetaminophen (Tylenol) 325 Mg Tb, 325 MG PO PRN, TAB 05/20/25 Folic Kfwf-Mlegdljwtm-Wjrtnppx (Folbic) Tab, 1 TAB PO DAILY, #90 TAB 3 Refills 05/20/25 [Hydroxchlor Quine] No Conflict Check, PO BID, #1 10/09/10 Past Medical History Others Past medical history includes hypertension, kidney stones, SLE, history of prostate surgery, history of left knee surgery, BPH, history of right kidney angiomyolipoma, SVT and recent diagnosis of pulmonary hypertension. Patient Family History: Cardiovascular disease G8 SISTER Smoker: No Hx (Negative) Alocohol: None Lives with: With family Review of Systems Constitutional: Weakness Ears, Nose, & Throat: No symptom reported Eyes: No symptom reported Pulmonary/Respiratory: No symptom reported Cardiovascular: No symptom reported All Other Systems Fourteen point review of system was performed. Relevant findings as per above and as per HPI. Otherwise negative. H&P Exam Vital Signs Vital Signs Date Time Temp Pulse Resp B/P (MAP) Pulse Ox O2 Delivery O2 Flow Rate FiO2 07/27/25 12:52 98.6 64 18 104/42 (62) 94 98.6 130/57 (81) 135/51 (79) 07/27/25 08:00 Room Air* 0 21 General Appeara: Well developed Head Exam: Normal inspection Neck Exam: Normal inspection Eye Exam: bilateral eye PERRL Mouth: Normal Inspection Pulmonary/Respiratory: Rhonci Cardiovascular/Chest: Normal inspection, Regular rate, Systolic murmur Peripheral Pulses: 2+ carotid (R), 2+ carotid (L), 2+ femoral (R), 2+ femoral (L) Abdominal Exam: Normal bowel sounds, Soft Neuro/Mental St: Alert, Oriented Appearance: Appropriate appearance Eye contact/ Speech: Cooperative Labs/Xrays Labs Test 07/27/25 11:59 07/27/25 05:18 07/26/25 16:30 07/26/25 13:00 Range/Units POC Glucose 101 70-106 mg/dl White Blood Count 14.7 #H 4.4-10.8 10^3/uL Red Blood Count 3.59 L 4.5-5.90 10^6/uL Hemoglobin 11.9 L 13.5-17.5 g/dL Hematocrit 34.3 #L 41.0-53.0 % Mean Corpuscular Volume 95.5 80.0-100.0 fL Mean Corpuscular Hemoglobin 33.2 H 28.0-32.0 pg Mean Corpuscular Hemoglobin Concent 34.7 32.0-36.0 g/dL Red Cell Distribution Width 15.9 H 11.8-14.3 % Platelet Count 137 L 140-450 10^3/uL Mean Platelet Volume 9.3 6.9-10.8 fL Neutrophils (%) (Auto) 91.5 H 37.0-80.0 % Lymphocytes (%) (Auto) 2.1 L 10.0-50.0 % Monocytes (%) (Auto) 5.9 0.0-12.0 % Eosinophils (%) (Auto) 0.2 0.0-7.0 % Basophils (%) (Auto) 0.3 0.0-2.0 % Neutrophils # (Auto) 13.4 H 1.6-8.6 10 ^3/uL Lymphocytes # (Auto) 0.3 L 0.4-5.4 10 ^3/uL Monocytes # (Auto) 0.9 0-1.3 10 ^3/uL Eosinophils # (Auto) 0 0-0.8 10 ^3/uL Basophils # (Auto) 0 0-0.2 10 ^3/uL Nucleated Red Blood Cells 0.1 % Sodium Level 143 136-145 mmol/L Potassium Level 3.8 3.5-5.1 mmol/L Chloride Level 110 H 98-107 mmol/L Carbon Dioxide Level 21 20-31 mmol/L Anion Gap 12 5-15 Blood Urea Nitrogen 19 9-23 mg/dL Creatinine 1.28 0.700-1.30 mg/dL Glomerular Filtration Rate Calc 57 >90 mL/min BUN/Creatinine Ratio 14.8 10.0-20.0 Serum Glucose 108 H 74-106 mg/dL Calcium Level 8.5 L 8.7-10.4 mg/dL Total Bilirubin 0.8 0.2-1.0 mg/dL Aspartate Amino Transferase (AST) 26 13-40 U/L Alanine Aminotransferase (ALT) 14 7-40 U/L Alkaline Phosphatase 72 46-116 U/L Total Protein 6.1 5.7-8.2 g/dL Albumin 3.6 3.2-4.8 g/dL Troponin I High Sensitivity 65 *H </=54 ng/L D-Dimer, Quantitative 2.45 H 0.0-0.49 mg/L FEU Hemoglobin A1c 5.4 <5.7 % A1C Assessment/Plan Plan Patient is a 79-year-old gentleman who was in the hospital for nephrostomy tube exchange. Reportedly, the nephrostomy tube was exchanged and later on the patient was going to be evaluated for elective procedure to be done next week. While waiting, the patient had episode of nonresponding. He was taken to emergency room and was admitted for that episode. Assessment has been encephalopathy. Reportedly, heart rate did go down to 47 and reportedly there was some hypotension. Cardiology is involved for cardiac aspects of care. Christopher chong is known to our practice from outside. Does take 100 mg of atenolol daily as outpatient. He is recently diagnosed to have pulmonary hypertension (right ventricular systolic pressure was assessed by echocardiogram to be 49 mm Hg). Patient denies any chest pain. He does not recall the episode. As outpatient, recently had CT scan of the chest which actually reported questi onable biliary duct stone. Not in acute distress. No JVD. Not using accessory muscles of breathing. No carotid bruit. No goiter. Lungs are clear to auscultation. Cardiac: Regular, no thrill/gallop. Abdomen is soft. Bowel sound is positive. There is no tenderness. There is no peripheral edema. Dorsalis pedis is 2+ bilateral. Past medical history includes hypertension, kidney stones, SLE, history of prostate surgery, history of left knee surgery, BPH, history of right kidney angiomyolipoma, SVT and recent diagnosis of pulmonary hypertension. Nuclear stress test of June 04, 2025 revealed normal perfusion, ejection frac tion of 68% Left heart catheterization of 2016 revealed normal coronaries Echocardiogram of May 28, 2025 (performed in the office) revealed ejection fraction of 65-70%, abnormal relaxation of left ventricle, mild right atrial enlargement, mild mitral valve prolapse and right ventricular systolic pressure 49 mm Hg. WBC: 5.6 - 14.7 Hemoglobin: 13.5 - 11.9 D-dimer: 2.45 Potassium: 3.1 - 3.8 Creatinine: 1.33 - 1.28 Troponin (high sensitive): 64 - 66 - 65 Chest x-ray revealed: IMPRESSION: No acute cardiopulmonary disease CT of the head revealed: IMPRESSION: 1. No evidence of acute intracranial hemorrhage, mass effect or hydrocephalus. Carotid Doppler revealed: IMPRESSION: No hemodynamically significant stenosis noted in the right carotid system. No hemodynamically significant stenosis noted in the left carotid system. CTA of lungs revealed: Pulmonary artery: No pulmonary embolism Lower neck: Normal thyroid. Lungs: Bibasilar atelectasis. No focal consolidation, pleural effusion or pneumothorax. Heart/Vascular Structures: Normal heart size. No pericardial effusion. Lymph Nodes: No adenopathy Pleura: No pleural effusion or significant pneumothorax. Musculoskeletal: No acute osseous abnormality. Soft tissues: Normal. Upper abdomen: Left nephrolithiasis with left nephrostomy tube in place. IMPRESSION: 1. No Venous duplex of lower ext: IMPRESSION: 1. No evidence of deep vein thrombosis. Telemetry revealed sinus rhythm with bundle branch block Patient presented to the hospital for elective nephrostomy tube exchange which was performed. Later on while waiting had altered mental status. Presentation is in favor of encephalopathy. Was found to have leukocytosis. Did have recent nephrostomy tube exchange. Metabolic encephalopathy could explain the presentation. Could be secondary to UTI/sepsis? Patient's troponin has been minimally elevated and flat. Presentation is not considered acute coronary syndrome. Is the abnormal troponin reflecting pulmonary hypertension? Is found to have abnormal D-dimer. Recognizing pulmonary hypertension, pulmonary emboli needs to be ruled out. CT angio of the lungs was negative for acute pulmonary emboli. We may consider V/Q scan to rule out the possibility of chronic pulmonary emboli. As outpatient, the patient was found to have questionable biliary duct stones. Could they be the etiology for leukocytosis? Patient did have hypokalemia on arrival. Could not explain some component of presentation? Did have mild sinus bradycardia on arrival. Had been on 100 mg of atenolol as outpatient which could have contributed to the bradycardia. Mild Bradycardia is not assessed to explain the presentation. Does have history of systemic lupus erythematosus. Can SLE explain encephalopathy? Encephalopathy, metabolic versus septic Altered mental status Sepsis Leukocytosis UTI? Kidney stone Biliary duct stones?, history of Abnormal troponin, demand physiology Pulmonary hypertension, history of, recent diagnosis SLE, history of Cardiac suggestion for management: Manage on telemetry Follow-up electrolytes and kidney function tests and correct abnormalities Keep potassium above 4 and magnesium above 2 EKG Request for Echocardiogram Keep on telemetry V/Q scan Decrease the dose of Atenolol: 50 mg daily for now Consider imaging of the abdomen (CT and/or sonogram for example) Evaluation and management of sepsis as per primary team You may consider Neurology evaluation for presentation Thank you for consultation Further evaluation and management depends on the above and clinical course. A total of 75 minutes was spent reviewing the patient record, examining the patient, making a diagnostic and therapeutic plan, discussing this plan with medical personnel, following up on diagnostic studies and following the patient for clinical stability excluding any and all procedures. At least 50% of this time was spent in direct, nibu-ep-thod contact. Thank you for allowing me to participate in this patient's care. Further recommendations will depend on patient's clinical course. Please do not hesitate to contact me if you have any questions or concerns. This medical document was created using electronic medical record system with [employer] computerized dictation system. Although this document has been carefully reviewed, there may still be some phonetic and typographical errors. These areas are purely typographical due to the imperfection of the software programs, and do not reflect any compromise in the patient's medical care. Plan discussed with: Patient, Other (nurse) CHARLEY DUGGAN MD Jul 27, 2025 14:48
--- NOTE | 2025-07-27 15:00 | DVHSR ---
APPROVED REPORT EXAM: Two-dimensional and M-mode echocardiogram with Doppler and color Doppler. Blood Pressure: 123/59 mmHg INDICATION Elevated trops RISK FACTORS Height: 5'6", Weight: 157 DIMENSIONS LVDd4.7 (3.8-5.7cm)LA (2D)4.2 (1.9-4.0cm)Aortic Root3.6 (2.0-3.7cm) LVDs2.6 (2.5-4.0cm)LA (MM) (1.9-4.0cm)Aortic Cusp Exc1.9 (1.5-2.0cm) EF (%) 60.0 (55-70%)Rt. Atrium4.0 (1.9-4.0cm)Asc. Aorta cm IVSd0.8 (0.7-1.1cm)RV (D)4.4 (1.8-2.4cm) PWd0.9 (0.7-1.1cm) Mitral Valve MitralMitral Stenosis E wave0.99m/sMV Mean GR.mmHg A wave1.11m/sMV Peak GR.mmHg E/A ratio0.92D MVAcm2 DECEL [id number] 1/2 Timems Aortic Valve Aortic ValveAortic Stenosis V11.10m/Paulette Mean GR.6mmHg V21.69m/Paulette Peak GR.11mmHg LVOT Diameter2.0 (1.8-2.4cm)Doppler AVA2.04cm2 Pulmonic Valve V21.09m/s Tricuspid Valve TR Velocity3.26m/s [id number] Conclusion Left ventricle: Left ventricle is normal-sized with normal systolic function. LVEF was around 60%. There was no wall motion abnormality. Right ventricle was mildly dilated with preserved systolic function. Both atria were normal-sized. Aortic valve was trileaflet. There was no aortic stenosis/insufficiency. There was mild mitral and tricuspid regurgitation. There was trace pulmonary valve insufficiency. IVC was dilated with normal respiratory variation. There was no pericardial effusion. Right ventricular systolic pressure was assessed at 50 mm Hg.
--- NOTE | 2025-07-27 15:45 | DVH ---
INDICATION: Abnormal liver TECHNIQUE: Multiple real-time sonographic images of the abdomen were obtained. COMPARISON: None FINDINGS: Attic parenchyma shows increased echogenicity consistent with steatosis The liver measures 16 4 cm. No intrahepatic biliary ductal dilatation is noted. The gallbladder wall measures 0.8 mm and is unremarkable. No gallstones or sludge is seen. The com mon duct measures 4.3 mm and is unremarkable. No pericholecystic fluid is noted. The right kidney measures 10.6 cm. No hydronephrosis. There are 2 non-obstructing echogenic foci in the right kidney 1 measures 0.3 cm 2nd measures 1.9 x 1.3 x 1.2 cm. There is a small 8 mm anechoic lo wer pole cortical nodule consistent with a cortical cyst. Limited visualization of the left kidney due to bandaging however there appears to be hydronephrosis of the left kidney. The pancreas is not well visualized due to obscuration from bowel gas. The visualized portions of the IVC and aorta are grossly unremarkable. IMPRESSION: 1. Liver measures 16.4 cm with parenchymal changes consistent with steatosis. 2. Gallbladder is normal 3. Right kidney demonstrates stones cysts no hydronephrosis. 4. Left kidney demonstrated hydronephrosis seen well enough to measure because of bandaging.
--- NOTE | 2025-07-27 15:49 | DVH ---
Exam: CT CT AB PEL WO CON-NO ORAL OR IV History: Abnormal liver Comparison Study: None Technique: Multidetector spiral CT of the abdomen was performed from lung bases to pubic symphysis. Imaging was performed without IV contrast. Axial, coronal and sagittal multiplanar reformats were ob tained from the axial data set by the technologist. Radiation Dose : 1. Abdomen/Pelvis: CTDIvol 9.97 mGy, DLP 548 mGy*cm. Findings: Evaluation of solid organs is limited due to lack of intravenous contrast use. Lung Bases: No acute or significant lung base finding. Normal heart size. No pleural or pericardial effusion. Liver: The liver is normal in size. No focal lesions. Gallbladder and Biliary Tree: Unremarkable Spleen: Unremarkable Pancreas: The pancreas is grossly normal in appearance. Adrenal Glands: Unremarkable Kidneys: Mild left-sided hydronephrosis. Left-sided nephroureteral tube appears to be in good positio n with distal tip in the urinary bladder. Bladder: Grossly unremarkable for degree of distention. Bowel: The stomach is grossly normal in appearance. Small bowel and colon are normal in caliber and d istribution. The appendix is not visualized; however, no secondary findings of acute appendicitis id entified. Colonic diverticulosis without evidence of diverticulitis. Ascites: Absent Lymphadenopathy: No mesenteric, retroperitoneal or periportal lymphadenopathy. Abdominal Wall and Mesentery: Unremarkable. Vasculature: The visualized abdominal aorta is normal in size and caliber. Evaluation of abdominal a nd pelvic vessels is limited due to lack of intravenous contrast. Pelvic Organs: Unremarkable Musculoskeletal: No aggressive focal bony lesions, acute fractures or dislocation. IMPRESSION: 1. Mild left-sided hydronephrosis. 2. Left-sided nephroureteral tube appears to be in good position with distal tip in the urinary bladd er. 3. Colonic diverticulosis without evidence of diverticulitis. Radiation optimization: All CT scans at this facility use at least one of these dose optimization gerber hniques: automated exposure control mA and/or kV adjustment per patient size (includes targeted exam s where dose is matched to clinical indication) or iterative reconstruction.
[2025-07-28] VITALS (8 sets, daily range): BP systolic 0–149; BP diastolic 60–80; PULSE 59–72; RESP 16–18; TEMP 97.8–98.4; O2SAT 91–93
[2025-07-28 07:20] LABS: Hematocrit 34.1 % (41.0-53.0); Hemoglobin 11.8 g/dL (13.5-17.5); Mean Corpuscular Hemoglobin 33.0 pg (28.0-32.0); Mean Corpuscular Volume 95.4 fL (80.0-100.0)
[2025-07-28 07:30] LABS: Potassium 3.6 mmol/L (3.5-5.1); Sodium 143 mmol/L (136-145)
[2025-07-28 07:31] LABS: Anion Gap 12 (5-15); Calcium 9.0 mg/dL (8.7-10.4); Carbon Dioxide 23 mmol/L (20-31)
[2025-07-28 07:36] LABS: BUN/Creatinine Ratio 13.6 (10.0-20.0); Blood Urea Nitrogen 15 mg/dL (9-23); Glucose 99 mg/dL (74-106)
--- NOTE | 2025-07-28 07:36 | DVHPN2 ---
Progress Note - Dictate Date Seen: Jul 28, 2025 Medical Necessity Reason Pt with a Central, PICC or Fol: No vital signs Vital Sign Date Time Temp Pulse Resp B/P (MAP) Pulse Ox O2 Delivery O2 Flow Rate FiO2 07/28/25 05:00 98.1 72 16 140/74 (96) 91 98.1 007/27/25 20:00 Room Air* 0 21 Total Intake and Output 07/27/25 07/27/25 07/28/25 15:00 23:00 07:00 Intake Total 50 ml 840 ml 750 ml Output Total 900 ml 500 ml Balance 50 ml -60 ml 250 ml medications Current Medications Medications Dose Ordered Sig/Rasheed Route Start Time Stop Time Status Last Admin Dose Admin Acetaminophen/ Hydrocodone Bitart 1 tab Q4HP PRN PO 07/26/25 14:00 Ondansetron HCl 4 mg Q4HP PRN IV 07/26/25 14:00 Acetaminophen 650 mg Q6HP PRN PO 07/26/25 14:00 Morphine Sulfate 2 mg Q4HPRN PRN IV 07/26/25 14:45 Nitroglycerin 0.4 mg Q5MINP PRN SL 07/26/25 14:00 Morphine Sulfate 2 mg Q30M PRN IV 07/26/25 14:45 Diagnostic Test (Pha) 1 strip ACHS 07/26/25 17:00 07/28/25 06:33 1 STRIP Insulin Human Regular ACHS SC 07/26/25 17:00 Dextrose 50 ml UD PRN IV 07/26/25 14:00 Sodium Chloride 1,000 ml @ 75 mls/hr [id number] IV 07/26/25 15:45 07/27/25 06:47 75 MLS/HR Ceftriaxone Sodium 50 ml @ 100 mls/hr DAILY@09 IV 07/28/25 09:00 Atenolol 50 mg DAILY PO 07/28/25 10:00 laboratory and microbiology Laboratory Tests 07/28/25 06:38 Test 07/28/25 06:38 Range/Units Serum Glucose Pending Assessment/Plan Patient is a 79-year-old gentleman who was in the hospital for nephrostomy tube exchange. Reportedly, the nephrostomy tube was exchanged and later on the patient was going to be evaluated for elective procedure to be done next week. While waiting, the patient had episode of nonresponding. He was taken to emergency room and was admitted for that episode. Assessment has been encephalopathy. Reportedly, heart rate did go down to 47 and reportedly there was some hypotension. Cardiology is involved for cardiac aspects of care. Patient is known to our practice from outside. Does take 100 mg of atenolol daily as outpatient. He is recently diagnosed to have pulmonary hypertension (right ventricular systolic pressure was assessed by echocardiogram to be 49 mm Hg). Patient denies any chest pain. He does not recall the episode. As outpatient, recently had CT scan of the chest which actually reported questionable biliary duct stone. Not in acute distress. No JVD. Not using accessory muscles of breathing. No carotid bruit. No goiter. Lungs are clear to auscultation. Cardiac: Regular, no thrill/gallop. Abdomen is soft. Bowel sound is positive. There is no tenderness. There is no peripheral edema. Dorsalis pedis is 2+ bilateral. Past medical history includes hypertension, kidney stones, SLE, history of prostate surgery, history of left knee surgery, BPH, history of right kidney angiomyolipoma, SVT and recent diagnosis of pulmonary hypertension. Nuclear stress test of June 04, 2025 revealed normal perfusion, ejection fraction of 68% Left heart catheterization of 2016 revealed normal coronaries Echocardiogram of May 28, 2025 (performed in the office) revealed ejection fraction of 65-70%, abnormal relaxation of left ventricle, mild right atrial enlargement, mild mitral valve prolapse and right ventricular systolic pressure 49 mm Hg. WBC: 5.6 - 14.7 - 11.6 Hemoglobin: 13.5 - 11.9 - 11.8 D-dimer: 2.45 Potassium: 3.1 - 3.8 - 3.6 Creatinine: 1.33 - 1.28 - 1.10 Troponin (high sensitive): 64 - 66 - 65 Chest x-ray revealed: IMPRESSION: No acute cardiopulmonary disease CT of the head revealed: IMPRESSION: 1. No evidence of acute intracranial hemorrhage, mass effect or hydrocephalus. Carotid Doppler revealed: IMPRESSION: No hemodynamically significant stenosis noted in the right carotid system. No hemodynamically significant stenosis noted in the left carotid system. CTA of lungs revealed: Pulmonary artery: No pulmonary embolism Lower neck: Normal thyroid. Lungs: Bibasilar atelectasis. No focal consolidation, pleural effusion or pneumothorax. Heart/Vascular Structures: Normal heart size. No pericardial effusion. Lymph Nodes: No adenopathy Pleura: No pleural effusion or significant pneumothorax. Musculoskeletal: No acute osseous abnormality. Soft tissues: Normal. Upper abdomen: Left nephrolithiasis with left nephrostomy tube in place. IMPRESSION: 1. No CT of abdomen and pelvis revealed: IMPRESSION: 1. Mild left-sided hydronephrosis. 2. Left-sided nephroureteral tube appears to be in good position with distal tip in the urinary bladder. 3. Colonic diverticulosis without evidence of diverticulitis. Abdominal Ultrasound revealed: IMPRESSION: 1. Liver measures 16.4 cm with parenchymal changes consistent with steatosis. 2. Gallbladder is normal 3. Right kidney demonstrates stones cysts no hydronephrosis. 4. Left kidney demonstrated hydronephrosis seen well enough to measure because of bandaging. Venous duplex of lower ext: IMPRESSION: 1. No evidence of deep vein thrombosis. EKG revealed: NSR, RBBB Telemetry revealed sinus rhythm with bundle branch block Echocardiogram revealed: Left ventricle: Left ventricle is normal-sized with normal systolic function. LVEF was around 60%. There was no wall motion abnormality. Right ventricle was mildly dilated with preserved systolic function. Both atria were normal-sized. Aortic valve was trileaflet. There was no aortic stenosis/insufficiency. There was mild mitral and tricuspid regurgitation. There was trace pulmonary valve insufficiency. IVC was dilated with normal respiratory variation. There was no pericardial effusion. Right ventricular systolic pressure was assessed at 50 mm Hg. Patient presented to the hospital for elective nephrostomy tube exchange which was performed. Later on while waiting had altered mental status. Presentation is in favor of encephalopathy. Was found to have leukocytosis. Did have recent nephrostomy tube exchange. Metabolic encephalopathy could explain the presentation. Could be secondary to UTI/sepsis? Patient's troponin has been minimally elevated and flat. Presentation is not considered acute coronary syndrome. Is the abnormal troponin reflecting pulmonary hypertension? Is found to have abnormal D-dimer. Recognizing pulmonary hypertension, pulmonary emboli needs to be ruled out. CT angio of the lungs was negative for acute pulmonary emboli. We may consider V/Q scan to rule out the possibility of chronic pulmonary emboli. As outpatient, the patient was found to have questionable biliary duct stones. Could they be the etiology for leukocytosis? Patient did have hypokalemia on arrival. Could not explain some component of presentation? Did have mild sinus bradycardia on arrival. Had been on 100 mg of atenolol as outpatient which could have contributed to the bradycardia. Mild Bradycardia is not assessed to explain the presentation. Repeat imaging here (CT and sonogram) did not reveal any bile duct stone. Does have history of systemic lupus erythematosus. Can SLE explain encephalopathy? Encephalopathy, metabolic versus septic Altered mental status Sepsis Leukocytosis UTI? Kidney stone Biliary duct stones?, history of Abnormal troponin, demand physiology Pulmonary hypertension, history of, recent diagnosis SLE, history of Cardiac suggestion for management: Manage on telemetry Follow-up electrolytes and kidney function tests and correct abnormalities Keep potassium above 4 and magnesium above 2 V/Q scan Decreased dose of Atenolol: 50 mg daily for now (was 100 mg prior to admission) Evaluation and management of sepsis as per primary team You may consider Neurology evaluation for presentation Further evaluation and management depends on the above and clinical course. A total of 55 minutes was spent reviewing the patient record, examining the patient, making a diagnostic and therapeutic plan, discussing this plan with medical personnel, following up on diagnostic studies and following the patient for clinical stability excluding any and all procedures. At least 50% of this time was spent in direct, [id number] contact. Thank you for allowing me to participate in this patient's care. Further recommendations will depend on patient's clinical course. Please do not hesitate to contact me if you have any questions or concerns. This medical document was created using electronic medical record system with [employer] computerized dictation system. Although this document has been carefully reviewed, there may still be some phonetic and typographical errors. These areas are purely typographical due to the imperfection of the software programs, and do not reflect any compromise in the patient's medical care. Plan discussed with: Patient, Other (nurse) CHARLEY DUGGAN MD Jul 28, 2025 07:36
[2025-07-28 07:37] LABS: Magnesium 1.7 mg/dL (1.6-2.6)
[2025-07-28 07:50] LABS: Chloride 108 mmol/L (98-107)
[2025-07-28 07:56] LABS: Total Cells Counted 100.0 (100)
[2025-07-28 07:57] LABS: Anisocytosis Slight
--- NOTE | 2025-07-28 09:21 | ECG ---
[facility] Test Date: 2025-07-27 Test Time: 16:59:37 Pat Name: KANDY BEAN Department: Room: 0247T B Gender: M [employer]: RN : 1945 Requested By: CHARLEY DUGGAN Order Number: [id number] Reading MD: Shubham Henderson Measurements Intervals [place] Rate: 65 P: 58 LA: 217 QRS: -22 QRSD: 143 T: 20 QT: 450 QTc: 468 Interpretive Statements Sinus rhythm Borderline prolonged LA interval Right bundle branch block Electronically Signed On 08-03-2025 19:34:57 PDT by Shubham Henderson Please click the below link to view image of tracing.
[2025-07-28] MEDS: ATENOLOL 25 MG TAB PO SCH (09:32)
--- NOTE | 2025-07-28 13:22 | DVHPN2 ---
Subjective No new complaints No abdominal pain White count is better at 11.6 Urinalysis has not been done Changes from previous H/P or p: Changes Objective Vitals Vital Signs Date Time Temp Pulse Resp B/P (MAP) Pulse Ox O2 Delivery O2 Flow Rate FiO2 07/28/25 09:32 65 131/63 07/28/25 08:30 98.4 17 92 98.4 07/28/25 08:00 Room Air* 0 21 Intake/Output Intake and Output 07/28/25 07:00 Intake Total 1640 ml Output Total 1400 ml Balance 240 ml Intake Oral 1590 ml IV Total 50 ml Output Urine Total 1400 ml # Bowel Movements 1 General Appearance: Alert, Oriented X3, Cooperative, No acute distress Lungs: Clear to auscultation, Normal air movement Cardiovascular: Regular rate, Normal S1, Normal S2, No murmurs Abdomen: Normal bowel sounds, Soft, No tenderness, No hepatospenomegaly Extremities: No edema Medications Current Medications Medications Dose Ordered Sig/Rasheed Route Start Time Stop Time Status Last Admin Dose Admin Acetaminophen/ Hydrocodone Bitart 1 tab Q4HP PRN PO 07/26/25 14:00 Ondansetron HCl 4 mg Q4HP PRN IV 07/26/25 14:00 Acetaminophen 650 mg Q6HP PRN PO 07/26/25 14:00 Morphine Sulfate 2 mg Q4HPRN PRN IV 07/26/25 14:45 Nitroglycerin 0.4 mg Q5MINP PRN SL 07/26/25 14:00 Morphine Sulfate 2 mg Q30M PRN IV 07/26/25 14:45 Sodium Chloride 1,000 ml @ 75 mls/hr [id number] IV 07/26/25 15:45 07/27/25 06:47 75 MLS/HR Ceftriaxone Sodium 50 ml @ 100 mls/hr DAILY@09 IV 07/28/25 09:00 07/28/25 09:32 100 MLS/HR Atenolol 50 mg DAILY PO 07/28/25 10:00 07/28/25 09:32 50 MG Laboratory Results Laboratory Tests 07/28/25 06:38 Chemistry Test 07/28/25 06:38 Calcium Level 9.0 mg/dL (8.7-10.4) Magnesium Level 1.7 mg/dL (1.6-2.6) Coagulation Test 07/28/25 08:52 Prothrombin Time Diluted Pending Dilute PT Confirmation Ratio Pending Thrombin Time Pending Dilute Mariano Viper Venom (Lupus) Pending Lupus Anticoagulant Interpretation Pending Assessment/Plan Assessment/Plan Left nephrolithiasis status post nephrostomy tube Syncope Rule out PE Hypertension NSTEMI Rule out UTI Elevated D-dimer Hypokalemia Plan Consult Cardiology Dr. Quintana CTA of the lungs negative for PE Venous Doppler of the lower extremities to rule out DVT Get a urinalysis Urine bacterial culture Start IV Rocephin for possible underlying UTI IV fluids Replace potassium as needed Full code Advance directives discussed for 20 minutes 07/28/2025: Continue current management with IV Rocephin and IV fluids Urology consult for tomorrow Cardiology has seen the patient Imaging showed left hydronephrosis Hypomagnesemia: Correct p.o. Plan discussed with: Patient Date of Service: Jul 28, 2025 Billing Provider: CORRINA MORGAN MD Common Visit Codes: [id number] INP/OBS CARE(HIGH) CORRINA MORGAN MD Jul 28, 2025 13:22
[2025-07-28] MEDS: MAGNESIUM OXIDE 400 MG TAB PO ONE (13:34)
[2025-07-29 05:00] VITALS: BP_SYST 0; BP_SYST 155; BP_DIAS 74; PULSE 55; RESP 18; TEMP 98.2; O2SAT 97
[2025-07-29 07:51] LABS: Hematocrit 32.8 % (41.0-53.0); Hemoglobin 11.4 g/dL (13.5-17.5); Mean Corpuscular Hemoglobin 33.2 pg (28.0-32.0); Mean Corpuscular Volume 95.3 fL (80.0-100.0); Nucleated Red Blood Cells % 0.0 %
[2025-07-29 08:00] VITALS: PULSE 54
[2025-07-29 08:09] LABS: Alanine Aminotransferase 16 U/L (7-40); Albumin 3.6 g/dL (3.2-4.8); Alkaline Phosphatase 80 U/L (46-116); Anion Gap 13 (5-15); BUN/Creatinine Ratio 6.9 (10.0-20.0); Calcium 8.9 mg/dL (8.7-10.4); Carbon Dioxide 21 mmol/L (20-31); Glucose 88 mg/dL (74-106); Magnesium 1.9 mg/dL (1.6-2.6); Potassium 3.8 mmol/L (3.5-5.1); Sodium 141 mmol/L (136-145); Total Protein 6.4 g/dL (5.7-8.2)
[2025-07-29 08:10] LABS: Bilirubin, Total 0.7 mg/dL (0.2-1.0)
[2025-07-29 08:11] LABS: Blood Urea Nitrogen 8 mg/dL (9-23); Chloride 107 mmol/L (98-107)
--- NOTE | 2025-07-29 08:42 | DVHPN2 ---
Progress Note - Dictate Date Seen: Jul 29, 2025 Medical Necessity Reason Pt with a Central, PICC or Fol: No vital signs Vital Sign Date Time Temp Pulse Resp B/P (MAP) Pulse Ox O2 Delivery O2 Flow Rate FiO2 07/29/25 05:00 98.2 55 18 155/74 (101) 97 98.2 007/28/25 20:10 Room Air* 0 21 Total Intake and Output 07/28/25 07/28/25 07/29/25 15:00 23:00 07:00 Intake Total 50 ml 820 ml 500 ml Output Total 800 ml 900 ml Balance 50 ml 20 ml -400 ml medications Current Medications Medications Dose Ordered Sig/Rasheed Route Start Time Stop Time Status Last Admin Dose Admin Acetaminophen/ Hydrocodone Bitart 1 tab Q4HP PRN PO 07/26/25 14:00 Ondansetron HCl 4 mg Q4HP PRN IV 07/26/25 14:00 Acetaminophen 650 mg Q6HP PRN PO 07/26/25 14:00 Morphine Sulfate 2 mg Q4HPRN PRN IV 07/26/25 14:45 Nitroglycerin 0.4 mg Q5MINP PRN SL 07/26/25 14:00 Morphine Sulfate 2 mg Q30M PRN IV 07/26/25 14:45 Sodium Chloride 1,000 ml @ 75 mls/hr [id number] IV 07/26/25 15:45 07/27/25 06:47 75 MLS/HR Ceftriaxone Sodium 50 ml @ 100 mls/hr DAILY@09 IV 07/28/25 09:00 07/28/25 09:32 100 MLS/HR Atenolol 50 mg DAILY PO 07/28/25 10:00 07/28/25 09:32 50 MG laboratory and microbiology Laboratory Tests 07/29/25 06:44 Test 07/29/25 06:44 Range/Units Serum Glucose 88 74-106 mg/dL Assessment/Plan Patient is a 79-year-old gentleman who was in the hospital for nephrostomy tube exchange. Reportedly, the nephrostomy tube was exchanged and later on the patient was going to be evaluated for elective procedure to be done next week. While waiting, the patient had episode of nonresponding. He was taken to emergency room and was admitted for that episode. Assessment has been encephalopathy. Reportedly, heart rate did go down to 47 and reportedly there was some hypotension. Cardiology is involved for cardiac aspects of care. Patient is known to our practice from outside. Does take 100 mg of atenolol daily as outpatient. He is recently diagnosed to have pulmonary hypertension (right ventricular systolic pressure was assessed by echocardiogram to be 49 mm Hg). Patient denies any chest pain. He does not recall the episode. As outpatient, recently had CT scan of the chest which actually reported questionable biliary duct stone. Not in acute distress. No JVD. Not using accessory muscles of breathing. No carotid bruit. No goiter. Lungs are clear to auscultation. Cardiac: Regular, no thrill/gallop. Abdomen is soft. Bowel sound is positive. There is no tenderness. There is no peripheral edema. Dorsalis pedis is 2+ bilateral. Past medical history includes hypertension, kidney stones, SLE, history of prostate surgery, history of left knee surgery, BPH, history of right kidney angiomyolipoma, SVT and recent diagnosis of pulmonary hypertension. Nuclear stress test of June 04, 2025 revealed normal perfusion, ejection fraction of 68% Left heart catheterization of 2016 revealed normal coronaries Echocardiogram of May 28, 2025 (performed in the office) revealed ejection fraction of 65-70%, abnormal relaxation of left ventricle, mild right atrial enlargement, mild mitral valve prolapse and right ventricular systolic pressure 49 mm Hg. WBC: 5.6 - 14.7 - 11.6 - 9.9 Hemoglobin: 13.5 - 11.9 - 11.8 - 11.4 D-dimer: 2.45 Potassium: 3.1 - 3.8 - 3.6 - 3.8 Creatinine: 1.33 - 1.28 - 1.10 - 1.16 Troponin (high sensitive): 64 - 66 - 65 Chest x-ray revealed: IMPRESSION: No acute cardiopulmonary disease CT of the head revealed: IMPRESSION: 1. No evidence of acute intracranial hemorrhage, mass effect or hydrocephalus. Carotid Doppler revealed: IMPRESSION: No hemodynamically significant stenosis noted in the right carotid system. No hemodynamically significant stenosis noted in the left carotid system. CTA of lungs revealed: Pulmonary artery: No pulmonary embolism Lower neck: Normal thyroid. Lungs: Bibasilar atelectasis. No focal consolidation, pleural effusion or pneumothorax. Heart/Vascular Structures: Normal heart size. No pericardial effusion. Lymph Nodes: No adenopathy Pleura: No pleural effusion or significant pneumothorax. Musculoskeletal: No acute osseous abnormality. Soft tissues: Normal. Upper abdomen: Left nephrolithiasis with left nephrostomy tube in place. IMPRESSION: 1. No CT of abdomen and pelvis revealed: IMPRESSION: 1. Mild left-sided hydronephrosis. 2. Left-sided nephroureteral tube appears to be in good position with distal tip in the urinary bladder. 3. Colonic diverticulosis without evidence of diverticulitis. Abdominal Ultrasound revealed: IMPRESSION: 1. Liver measures 16.4 cm with parenchymal changes consistent with steatosis. 2. Gallbladder is normal 3. Right kidney demonstrates stones cysts no hydronephrosis. 4. Left kidney demonstrated hydronephrosis seen well enough to measure because of bandaging. Venous duplex of lower ext: IMPRESSION: 1. No evidence of deep vein thrombosis. EKG revealed: NSR, RBBB Telemetry revealed sinus rhythm with bundle branch block Echocardiogram revealed: Left ventricle: Left ventricle is normal-sized with normal systolic function. LVEF was around 60%. There was no wall motion abnormality. Right ventricle was mildly dilated with preserved systolic function. Both atria were normal-sized. Aortic valve was trileaflet. There was no aortic stenosis/insufficiency. There was mild mitral and tricuspid regurgitation. There was trace pulmonary valve insufficiency. IVC was dilated with normal respiratory variation. There was no pericardial effusion. Right ventricular systolic pressure was assessed at 50 mm Hg. Patient presented to the hospital for elective nephrostomy tube exchange which was performed. Later on while waiting had altered mental status. Presentation is in favor of encephalopathy. Was found to have leukocytosis. Did have recent nephrostomy tube exchange. Metabolic encephalopathy could explain the presentation. Could be secondary to UTI/sepsis? Patient's troponin has been minimally elevated and flat. Presentation is not considered acute coronary syndrome. Is the abnormal troponin reflecting pulmonary hypertension? Is found to have abnormal D-dimer. Recognizing pulmonary hypertension, pulmonary emboli needs to be ruled out. CT angio of the lungs was negative for acute pulmonary emboli. We may consider V/Q scan to rule out the possibility of chronic pulmonary emboli. As outpatient, the patient was found to have questionable biliary duct stones. Could they be the etiology for leukocytosis? Patient did have hypokalemia on arrival. Could not explain some component of presentation? Did have mild sinus bradycardia on arrival. Had been on 100 mg of atenolol as outpatient which could have contributed to the bradycardia. Mild Bradycardia is not assessed to explain the presentation. Repeat imaging here (CT and sonogram) did not reveal any bile duct stone. Does have history of systemic lupus erythematosus. Can SLE explain encephalopathy? Encephalopathy, metabolic versus septic Altered mental status Sepsis Leukocytosis UTI? Kidney stone Biliary duct stones?, history of Abnormal troponin, demand physiology Pulmonary hypertension, history of, recent diagnosis SLE, history of Cardiac suggestion for management: Manage on telemetry Follow-up electrolytes and kidney function tests and correct abnormalities Keep potassium above 4 and magnesium above 2 V/Q scan Decreased dose of Atenolol: 50 mg daily for now (was 100 mg prior to admission) Evaluation and management of sepsis as per primary team You may consider Neurology evaluation for presentation Further evaluation and management depends on the above and clinical course. A total of 55 minutes was spent reviewing the patient record, examining the patient, making a diagnostic and therapeutic plan, discussing this plan with medical personnel, following up on diagnostic studies and following the patient for clinical stability excluding any and all procedures. At least 50% of this time was spent in direct, [id number] contact. Thank you for allowing me to participate in this patient's care. Further recommendations will depend on patient's clinical course. Please do not hesitate to contact me if you have any questions or concerns. This medical document was created using electronic medical record system with [employer] computerized dictation system. Although this document has been carefully reviewed, there may still be some phonetic and typographical errors. These areas are purely typographical due to the imperfection of the software programs, and do not reflect any compromise in the patient's medical care. Plan discussed with: Patient, Other (nurse) CHARLEY DUGGAN MD Jul 29, 2025 08:42
[2025-07-29 09:00] VITALS: BP_SYST 0; BP_SYST 147; BP_DIAS 80; PULSE 57; RESP 19; TEMP 98.9; O2SAT 95
--- NOTE | 2025-07-29 12:25 | DVH ---
NUCLEAR MEDICINE VENTILATION/PERFUSION LUNG SCAN. INDICATION: PULMONARY EMBOLISM TECHNIQUE: Following intravenous demonstration of 4.9 millicuries of MAA, and inhalation of 5.4 mC i of xenon 133 scintigrams were obtained in multiple projections of the lungs. FINDINGS: There is normal uptake of radionuclide on both the ventilation and perfusion portions of the examinat ion. No mismatched perfusion defects are demonstrated. Uptake is normally homogeneous. IMPRESSION: Low probability for PE.
--- NOTE | 2025-07-29 13:16 | DVHPN2 ---
Subjective No new complaints No abdominal pain He is voiding clear urine No drainage in the left nephrostomy tube CTA of the lungs and V/Q scans are negative for PE Changes from previous H/P or p: Changes Objective Vitals Vital Signs Date Time Temp Pulse Resp B/P (MAP) Pulse Ox O2 Delivery O2 Flow Rate FiO2 07/29/25 09:25 62 139/73 07/29/25 09:00 98.9 19 95 98.9 07/29/25 08:00 Room Air* 0 21 Intake/Output Intake and Output 07/29/25 07:00 Intake Total 1370 ml Output Total 1700 ml Balance -330 ml Intake Oral 1320 ml IV Total 50 ml Output Urine Total 1700 ml General Appearance: Alert, Oriented X3, Cooperative, No acute distress Lungs: Clear to auscultation, Normal air movement Cardiovascular: Regular rate, Normal S1, Normal S2, No murmurs Abdomen: Normal bowel sounds, Soft, No tenderness, No hepatospenomegaly Extremities: No edema Medications Current Medications Medications Dose Ordered Sig/Rasheed Route Start Time Stop Time Status Last Admin Dose Admin Acetaminophen/ Hydrocodone Bitart 1 tab Q4HP PRN PO 07/26/25 14:00 Ondansetron HCl 4 mg Q4HP PRN IV 07/26/25 14:00 Acetaminophen 650 mg Q6HP PRN PO 07/26/25 14:00 Morphine Sulfate 2 mg Q4HPRN PRN IV 07/26/25 14:45 Nitroglycerin 0.4 mg Q5MINP PRN SL 07/26/25 14:00 Morphine Sulfate 2 mg Q30M PRN IV 07/26/25 14:45 Sodium Chloride 1,000 ml @ 75 mls/hr [id number] IV 07/26/25 15:45 07/27/25 06:47 75 MLS/HR Ceftriaxone Sodium 50 ml @ 100 mls/hr DAILY@09 IV 07/28/25 09:00 07/29/25 09:24 100 MLS/HR Atenolol 50 mg DAILY PO 07/28/25 10:00 07/29/25 09:25 50 MG Laboratory Results Laboratory Tests 07/29/25 06:44 Chemistry Test 07/29/25 06:44 Albumin 3.6 g/dL (3.2-4.8) Calcium Level 8.9 mg/dL (8.7-10.4) Magnesium Level 1.9 mg/dL (1.6-2.6) Total Protein 6.4 g/dL (5.7-8.2) LFT Test 07/29/25 06:44 Alanine Aminotransferase (ALT) 16 U/L (7-40) Alkaline Phosphatase 80 U/L (46-116) Aspartate Amino Transferase (AST) 22 U/L (13-40) Total Bilirubin 0.7 mg/dL (0.2-1.0) Assessment/Plan Assessment/Plan Left nephrolithiasis status post nephrostomy tube Syncope Rule out PE Hypertension NSTEMI Rule out UTI Elevated D-dimer Hypokalemia Plan Consult Cardiology Dr. Quintana CTA of the lungs negative for PE Venous Doppler of the lower extremities to rule out DVT Get a urinalysis Urine bacterial culture Start IV Rocephin for possible underlying UTI IV fluids Replace potassium as needed Full code Advance directives discussed for 20 minutes 07/28/2025: Continue current management with IV Rocephin and IV fluids Urology consult for tomorrow Cardiology has seen the patient Imaging showed left hydronephrosis Hypomagnesemia: Correct p.o. 07/29/2025: Consult Urology V/Q scan and CT of the lungs are negative for PE Continue IV antibiotics Rocephin Discontinue IV fluids Plan discussed with: Patient My Orders Orders - CORRINA MORGAN MD Procedure Category Date Status Time * Urology Consult CONS 07/29/25 Transmitted 09:16 Date of Service: Jul 29, 2025 Billing Provider: CORRINA MORGAN MD Common Visit Codes: [id number] INP/OBS CARE(HIGH) CORRINA MORGAN MD Jul 29, 2025 13:16
[2025-07-29 16:30] VITALS: BP_SYST 0; BP_SYST 148; BP_DIAS 72; PULSE 50; RESP 20; TEMP 99.2; O2SAT 96
[2025-07-29 20:00] VITALS: PULSE 59
[2025-07-29 21:02] VITALS: BP 156/78; PULSE 56; RESP 14; TEMP 99.4; O2SAT 96
--- NOTE | 2025-07-29 21:04 | DVHINCON2 ---
Date of service: Jul 29, 2025 Referring Physician Hospitalist Reason for Consultation Left staghorn calculus History of Present Illness Patient scheduled for left PCNL 07/30/25 underwent left percutanous nephroureterostomy per IR service on 07/26/25. Patient apparently experienced syncope/bradycardia revived by rapid response. He remains inpatient. Past Medical History BPH Bladder stones Renal stones Past Surgical History TURP Cystolitholapaxy ESWL, right Family History: Cardiovascular disease G8 SISTER Allergies: Coded Allergies: NO KNOWN ALLERGIES (Unverified , 10/09/10) Home Meds Reported Medications Hydroxychloroquine Sulfate (Hydroxychloroquine Sulfat) 200 Mg Tab, 200 MG PO DAILY for 30 Days, MG 07/24/25 Tadalafil (Cialis) 5 Mg Tab, 10 MG PO DAILY, TAB 07/24/25 Folic Acid (Folic Acid) 1 Mg Tab, 1 MG PO DAILY 07/24/25 Methotrexate (Methotrexate) 2.5 Mg Tab, 4 TAB PO QWEEKLY 05/20/25 Hydrochlorothiazide (Hydrochlorothiazide) 25 Mg Tab, 25 MG OR DAILY, #1 10/09/10 Amlodipine Besylate (Amlodipine Besylate) 10 Mg Tab, 10 MG OR DAILY, #1 10/09/10 Atenolol (Atenolol) 100 Mg Tab, 100 MG OR DAILY, #1 10/09/10 Lisinopril (Lisinopril) 40 Mg Tab, 40 MG OR DAILY, #1 10/09/10 Discontinued Reported Medications Acetaminophen (Tylenol) 325 Mg Tb, 325 MG PO PRN, TAB 05/20/25 Folic Ljgl-Stxjiioctu-Trrtwwyz (Folbic) Tab, 1 TAB PO DAILY, #90 TAB 3 Refills 05/20/25 [Hydroxchlor Quine] No Conflict Check, PO BID, #1 10/09/10 Vital Signs Vital Signs Date Time Temp Pulse Resp B/P (MAP) Pulse Ox O2 Delivery O2 Flow Rate FiO2 07/29/25 20:00 Room Air* 0 21 07/29/25 16:30 99.2 50 20 148/72 (97) 96 99.2 0/ Labs/Diagnostic Data Labs Test 07/29/25 06:44 07/28/25 08:52 07/28/25 06:38 10/5/25 06:35 Range/Units White Blood Count 9.9 4.4-10.8 10^3/uL Red Blood Count 3.44 L 4.5-5.90 10^6/uL Hemoglobin 11.4 L 13.5-17.5 g/dL Hematocrit 32.8 L 41.0-53.0 % Mean Corpuscular Volume 95.3 80.0-100.0 fL Mean Corpuscular Hemoglobin 33.2 H 28.0-32.0 pg Mean Corpuscular Hemoglobin Concent 34.8 32.0-36.0 g/dL Red Cell Distribution Width 15.7 H 11.8-14.3 % Platelet Count 148 140-450 10^3/uL Mean Platelet Volume 9.6 6.9-10.8 fL Neutrophils (%) (Auto) 78.6 37.0-80.0 % Lymphocytes (%) (Auto) 8.3 L 10.0-50.0 % Monocytes (%) (Auto) 11.5 0.0-12.0 % Eosinophils (%) (Auto) 1.3 0.0-7.0 % Basophils (%) (Auto) 0.3 0.0-2.0 % Neutrophils # (Auto) 7.8 1.6-8.6 10 ^3/uL Lymphocytes # (Auto) 0.8 0.4-5.4 10 ^3/uL Monocytes # (Auto) 1.1 0-1.3 10 ^3/uL Eosinophils # (Auto) 0.1 0-0.8 10 ^3/uL Basophils # (Auto) 0 0-0.2 10 ^3/uL Nucleated Red Blood Cells 0.0 % Sodium Level 141 136-145 mmol/L Potassium Level 3.8 3.5-5.1 mmol/L Chloride Level 107 98-107 mmol/L Carbon Dioxide Level 21 20-31 mmol/L Anion Gap 13 5-15 Blood Urea Nitrogen 8 L 9-23 mg/dL Creatinine 1.16 0.700-1.30 mg/dL Glomerular Filtration Rate Calc 64 >90 mL/min BUN/Creatinine Ratio 6.9 L 10.0-20.0 Serum Glucose 88 74-106 mg/dL Calcium Level 8.9 8.7-10.4 mg/dL Magnesium Level 1.9 1.6-2.6 mg/dL Total Bilirubin 0.7 0.2-1.0 mg/dL Aspartate Amino Transferase (AST) 22 13-40 U/L Alanine Aminotransferase (ALT) 16 7-40 U/L Alkaline Phosphatase 80 46-116 U/L Total Protein 6.4 5.7-8.2 g/dL Albumin 3.6 3.2-4.8 g/dL Differential Total Cells Counted 100.0 100 Neutrophils % (Manual) 80 37.0-80.0 Band Neutrophils % (Manual) 4 Lymphocytes % (Manual) 4 L 10.0-50.0 Monocytes % (Manual) 11 0-12 Eosinophils % (Manual) 1 0-7 Basophils % (Manual) 0 0.0-2.0 Metamyelocytes % (manual) 0 Myelocytes % (Manual) 0 Promyelocytes % (Manual) 0 Blast Cells % (Manual) 0 Reactive Lymphocytes 0 Platelet Estimate Decreased Anisocytosis (manual) Slight POC Glucose 111 H 70-106 mg/dl Test 07/26/25 16:30 07/26/25 13:00 Range/Units Troponin I High Sensitivity 65 *H </=54 ng/L D-Dimer, Quantitative 2.45 H 0.0-0.49 mg/L FEU Hemoglobin A1c 5.4 <5.7 % A1C Assessment Left Staghorn calculus Left PNT access placed. Plan/Recommendation If cleared by cardiology and anesthesia, will proceed with left PCNL. Plan discussed with: Patient, Other EJET ORONA MD Jul 29, 2025 21:04
[2025-07-30] VITALS (8 sets, daily range): BP systolic 0–183; BP diastolic 61–81; PULSE 55–83; RESP 14–18; TEMP 97.9–99.6; O2SAT 94–97
--- NOTE | 2025-07-30 07:30 | DVHPN2 ---
Progress Note - Dictate Date Seen: Jul 30, 2025 Medical Necessity Reason Pt with a Central, PICC or Fol: No vital signs Vital Sign Date Time Temp Pulse Resp B/P (MAP) Pulse Ox O2 Delivery O2 Flow Rate FiO2 07/30/25 05:00 98.2 60 14 148/81 (103) 94 98.2 07/29/25 20:00 Room Air* 0 21 Total Intake and Output 07/29/25 07/29/25 07/30/25 15:00 23:00 07:00 Intake Total 50 ml 600 ml 0 ml Output Total 700 ml 500 ml Balance 50 ml -100 ml -500 ml medications Current Medications Medications Dose Ordered Sig/Rasheed Route Start Time Stop Time Status Last Admin Dose Admin Acetaminophen/ Hydrocodone Bitart 1 tab Q4HP PRN PO 07/26/25 14:00 Ondansetron HCl 4 mg Q4HP PRN IV 07/26/25 14:00 Acetaminophen 650 mg Q6HP PRN PO 07/26/25 14:00 Morphine Sulfate 2 mg Q4HPRN PRN IV 07/26/25 14:45 Nitroglycerin 0.4 mg Q5MINP PRN SL 07/26/25 14:00 Morphine Sulfate 2 mg Q30M PRN IV 07/26/25 14:45 Ceftriaxone Sodium 50 ml @ 100 mls/hr DAILY@09 IV 07/28/25 09:00 07/29/25 09:24 100 MLS/HR Atenolol 50 mg DAILY PO 07/28/25 10:00 07/29/25 09:25 50 MG laboratory and microbiology Laboratory Tests 07/29/25 06:44 Test 07/29/25 06:44 Range/Units Serum Glucose 88 74-106 mg/dL Assessment/Plan Patient is a 79-year-old gentleman who was in the hospital for nephrostomy tube exchange. Reportedly, the nephrostomy tube was exchanged and later on the patient was going to be evaluated for elective procedure to be done next week. While waiting, the patient had episode of nonresponding. He was taken to emergency room and was admitted for that episode. Assessment has been encephalopathy. Reportedly, heart rate did go down to 47 and reportedly there was some hypotension. Cardiology is involved for cardiac aspects of care. Patient is known to our practice from outside. Does take 100 mg of atenolol daily as outpatient. He is recently diagnosed to have pulmonary hypertension (right ventricular systolic pressure was assessed by echocardiogram to be 49 mm Hg). Patient denies any chest pain. He does not recall the episode. As outpatient, recently had CT scan of the chest which actually reported questionable biliary duct stone. Not in acute distress. No JVD. Not using accessory muscles of breathing. No carotid bruit. No goiter. Lungs are clear to auscultation. Cardiac: Regular, no thrill/gallop. Abdomen is soft. Bowel sound is positive. There is no tenderness. There is no peripheral edema. Dorsalis pedis is 2+ bilateral. Past medical history includes hypertension, kidney stones, SLE, history of prostate surgery, history of left knee surgery, BPH, history of right kidney angiomyolipoma, SVT and recent diagnosis of pulmonary hypertension. Nuclear stress test of June 04, 2025 revealed normal perfusion, ejection fraction of 68% Left heart catheterization of 2016 revealed normal coronaries Echocardiogram of May 28, 2025 (performed in the office) revealed ejection fraction of 65-70%, abnormal relaxation of left ventricle, mild right atrial enlargement, mild mitral valve prolapse and right ventricular systolic pressure 49 mm Hg. WBC: 5.6 - 14.7 - 11.6 - 9.9 Hemoglobin: 13.5 - 11.9 - 11.8 - 11.4 D-dimer: 2.45 Potassium: 3.1 - 3.8 - 3.6 - 3.8 Creatinine: 1.33 - 1.28 - 1.10 - 1.16 Troponin (high sensitive): 64 - 66 - 65 Chest x-ray revealed: IMPRESSION: No acute cardiopulmonary disease CT of the head revealed: IMPRESSION: 1. No evidence of acute intracranial hemorrhage, mass effect or hydrocephalus. Carotid Doppler revealed: IMPRESSION: No hemodynamically significant stenosis noted in the right carotid system. No hemodynamically significant stenosis noted in the left carotid system. CTA of lungs revealed: Pulmonary artery: No pulmonary embolism Lower neck: Normal thyroid. Lungs: Bibasilar atelectasis. No focal consolidation, pleural effusion or pneumothorax. Heart/Vascular Structures: Normal heart size. No pericardial effusion. Lymph Nodes: No adenopathy Pleura: No pleural effusion or significant pneumothorax. Musculoskeletal: No acute osseous abnormality. Soft tissues: Normal. Upper abdomen: Left nephrolithiasis with left nephrostomy tube in place. IMPRESSION: 1. No V/Q scan revealed: IMPRESSION: Low probability for PE. CT of abdomen and pelvis revealed: IMPRESSION: 1. Mild left-sided hydronephrosis. 2. Left-sided nephroureteral tube appears to be in good position with distal tip in the urinary bladder. 3. Colonic diverticulosis without evidence of diverticulitis. Abdominal Ultrasound revealed: IMPRESSION: 1. Liver measures 16.4 cm with parenchymal changes consistent with steatosis. 2. Gallbladder is normal 3. Right kidney demonstrates stones cysts no hydronephrosis. 4. Left kidney demonstrated hydronephrosis seen well enough to measure because of bandaging. Venous duplex of lower ext: IMPRESSION: 1. No evidence of deep vein thrombosis. EKG revealed: NSR, RBBB Telemetry revealed sinus rhythm with bundle branch block Echocardiogram revealed: Left ventricle: Left ventricle is normal-sized with normal systolic function. LVEF was around 60%. There was no wall motion abnormality. Right ventricle was mildly dilated with preserved systolic function. Both atria were normal-sized. Aortic valve was trileaflet. There was no aortic stenosis/insufficiency. There was mild mitral and tricuspid regurgitation. There was trace pulmonary valve insufficiency. IVC was dilated with normal respiratory variation. There was no pericardial effusion. Right ventricular systolic pressure was assessed at 50 mm Hg. Patient presented to the hospital for elective nephrostomy tube exchange which was performed. Later on while waiting had altered mental status. Presentation is in favor of encephalopathy. Was found to have leukocytosis. Did have recent nephrostomy tube exchange. Metabolic encephalopathy could explain the presentation. Could be secondary to UTI/sepsis? Patient's troponin has been minimally elevated and flat. Presentation is not considered acute coronary syndrome. Is the abnormal troponin reflecting pulmonary hypertension? Is found to have abnormal D-dimer. Recognizing pulmonary hypertension, pulmonary emboli needs to be ruled out. CT angio of the lungs was negative for acute pulmonary emboli. We may consider V/Q scan to rule out the possibility of chronic pulmonary emboli. As outpatient, the patient was found to have questionable biliary duct stones. Could they be the etiology for leukocytosis? Patient did have hypokalemia on arrival. Could not explain some component of presentation? Did have mild sinus bradycardia on arrival. Had been on 100 mg of atenolol as outpatient which could have contributed to the bradycardia. Mild Bradycardia is not assessed to explain the presentation. Repeat imaging here (CT and sonogram) did not reveal any bile duct stone. Does have history of systemic lupus erythematosus. Can SLE explain encephalopathy? Encephalopathy, metabolic versus septic Altered mental status Sepsis Leukocytosis UTI? Kidney stone Biliary duct stones?, history of Abnormal troponin, demand physiology Pulmonary hypertension, history of, recent diagnosis SLE, history of Cardiac suggestion for management: Manage on telemetry Follow-up electrolytes and kidney function tests and correct abnormalities Keep potassium above 4 and magnesium above 2 Decreased dose of Atenolol: 50 mg daily for now (was 100 mg prior to admission) Cardiac wyman, patient is moderate risk patient for Moderate risk Urology procedure. Cardiac wyman, you can proceed with procedure under appropriate intra and post procedure hemodynamic monitoring. Avoid Hypotension. Evaluation and management of sepsis as per primary team You may consider Neurology evaluation for presentation Further evaluation and management depends on the above and clinical course. A total of 55 minutes was spent reviewing the patient record, examining the patient, making a diagnostic and therapeutic plan, discussing this plan with medical personnel, following up on diagnostic studies and following the patient for clinical stability excluding any and all procedures. At least 50% of this time was spent in direct, [id number] contact. Thank you for allowing me to participate in this patient's care. Further recommendations will depend on patient's clinical course. Please do not hesitate to contact me if you have any questions or concerns. This medical document was created using electronic medical record system with [employer] computerized dictation system. Although this document has been carefully reviewed, there may still be some phonetic and typographical errors. These areas are purely typographical due to the imperfection of the software programs, and do not reflect any compromise in the patient's medical care. Plan discussed with: Patient, Other (Nurese) CHARLEY DUGGAN MD Jul 30, 2025 07:30
--- NOTE | 2025-07-30 09:55 | DVHPN2 ---
Subjective No new complaints V/Q scan was also negative Dr. Quintana has cleared the patient for the urology procedure Dr. Lainez we will try to do the PCNL today Changes from previous H/P or p: Changes Objective Vitals Vital Signs Date Time Temp Pulse Resp B/P (MAP) Pulse Ox O2 Delivery O2 Flow Rate FiO2 07/30/25 05:00 98.2 60 14 148/81 (103) 94 98.2 07/29/25 20:00 Room Air* 0 21 Intake/Output Intake and Output 07/30/25 07:00 Intake Total 650 ml Output Total 1200 ml Balance -550 ml Intake Oral 600 ml IV Total 50 ml Output Urine Total 1200 ml Stool Total 0 ml General Appearance: Alert, Oriented X3, Cooperative, No acute distress Lungs: Clear to auscultation, Normal air movement Cardiovascular: Regular rate, Normal S1, Normal S2, No murmurs Abdomen: Normal bowel sounds, Soft, No tenderness, No hepatospenomegaly Extremities: No edema Medications Current Medications Medications Dose Ordered Sig/Rasheed Route Start Time Stop Time Status Last Admin Dose Admin Acetaminophen/ Hydrocodone Bitart 1 tab Q4HP PRN PO 07/26/25 14:00 Ondansetron HCl 4 mg Q4HP PRN IV 07/26/25 14:00 Acetaminophen 650 mg Q6HP PRN PO 07/26/25 14:00 Morphine Sulfate 2 mg Q4HPRN PRN IV 07/26/25 14:45 Nitroglycerin 0.4 mg Q5MINP PRN SL 07/26/25 14:00 Morphine Sulfate 2 mg Q30M PRN IV 07/26/25 14:45 Ceftriaxone Sodium 50 ml @ 100 mls/hr DAILY@09 IV 07/28/25 09:00 07/30/25 08:43 100 MLS/HR Atenolol 50 mg DAILY PO 07/28/25 10:00 07/29/25 09:25 50 MG Laboratory Results Laboratory Tests 07/29/25 06:44 Coagulation Test 07/30/25 09:24 Prothrombin Time Pending Prothrombin Time INR Pending Assessment/Plan Assessment/Plan Left nephrolithiasis status post nephrostomy tube Syncope Rule out PE Hypertension NSTEMI Rule out UTI Elevated D-dimer Hypokalemia Plan Consult Cardiology Dr. Quintana CTA of the lungs negative for PE Venous Doppler of the lower extremities to rule out DVT Get a urinalysis Urine bacterial culture Start IV Rocephin for possible underlying UTI IV fluids Replace potassium as needed Full code Advance directives discussed for 20 minutes 07/28/2025: Continue current management with IV Rocephin and IV fluids Urology consult for tomorrow Cardiology has seen the patient Imaging showed left hydronephrosis Hypomagnesemia: Correct p.o. 07/29/2025: Consult Urology V/Q scan and CT of the lungs are negative for PE Continue IV antibiotics Rocephin Discontinue IV fluids 07/30/2025: PCNL possibly today Cardiology cleared the patient for the procedure IV Rocephin Monitor closely Plan discussed with: Patient Date of Service: Jul 30, 2025 Billing Provider: CORRINA MORGAN MD Common Visit Codes: [id number] INP/OBS CARE(HIGH) CORRINA MORGAN MD Jul 30, 2025 09:55
[2025-07-30 09:59] LABS: INR 0.99 (0.9-1.15); Prothrombin Time 10.5 sec (9.3-11.8)
[2025-07-30] MEDS ORDERED: PROPOFOL 10 MG/ML 20 ML IV ONE (13:59)
[2025-07-30] MEDS ORDERED: fentaNYL CITRATE 100 MCG/2 ML VL ONE (13:59)
[2025-07-30] MEDS ORDERED: HYDROmorphone HCL 2 MG/ML VL/or syr ONE (14:33)
[2025-07-30] MEDS: IOHEXOL 300 MG/ML 100ML BOTTLE IJ ONE (14:42)
[2025-07-30] MEDS ORDERED: SUGAMMADEX 200mg/2ml Vial (100MG/ML) IV ONE (15:33)
--- NOTE | 2025-07-30 15:44 | DVHNC2 ---
Procedure - OPERATIVE REPORT Pre-op. Diagnosis: Left lower pole renal stone, 2.1 cm Post-op. Diagnosis: Same as pre-op diagnosis Operation: Percutaneous Nephrolithotripsy, LEFT- attempted Nephrostomy tube placement, LEFT Fluoroscopy Anesthesia: General Indications: Patient presented with large symptomatic left renal calculus of 2.1 cm in the lower pole. He is here for left percutaneous nephrolithotomy. The indications, risks, complications, alternatives and benefits of percutaneous nephrolithotomies (PCNL)were discussed with patient. All questions were encouraged and answered. Patient was aware of specific risks/complications, including but not limited to infections, bleeding, pain, renal injury, persistent stone disease requiring additional, possible other procedures such as laser or extracorporeal shockwave lithotripsies. Patient was also aware of alternatives of this surgery including open nephrolithotomy, ESWL, endoscopic retrograde laser lithotripsy and stent placement with chronic antibiotic management. Patient was competent and understood these risks and benefits and elected to proceed. Details of Procedure: The left percutaneous nephroureterostomy access catheter was preplaced on 07/26/25. Patient was taken to the operating room and underwent general endotracheal intubation. 16Fr Noland catheter was placed while in supine position. Next, appropriate prone positioning was accomplished as well as the area of flank where the temporary nephrostomy tube, placed by Interventional Radiology, was included in the wide prepping and draping. Under fluoroscopy, the sensor guidewire was placed through the nephrostomy tube and positioned into the bladder. Dual lumen catheter was placed over the Sensor tip guidewire and second superstiff Amplatz guidewire was placed into the bladder as the safety guidewire. Next nephrostomy tract was dilated with UroMax balloon dilation system, followed by 26 F sheath placement. Rigid nephroscope was used to access the renal pelvis. It was now evident that the access sheath was in the midpole of the kidney and the angle was to steep to reach the stone. I attempted to evaluate the stone with flexible cystoscope but could not identify the lower pole calyce. The procedure had to be aborted due to inadequat percutaneous access. Under fluoroscopy, the Amplatz guidewire was removed keeping the Senor guidewire in place through which a 16 Fr Nottingham catheter was placed and positioned over the guidewire into the renal pelvis in an antegrade fashion. Proper placement was verified. The subcutaneous tissue and the skin were closed with 2-0 Chromic suture. Patient was placed in supine, extubated and taken to RR in stable condition. Noland catheter remained in place. All counts were correct. Specimens: None Complications: None Findings: Inadequate access prohibited to proceed with PCNL. Will plan for cystoscopy with stent placement and ESWL, followed by possible URSLL/CVAC renal evacuation. JEET ORONA MD Jul 30, 2025 15:44
--- NOTE | 2025-07-30 16:27 | DVH ---
C-ARM FLUOROSCOPY: PROCEDURE: Lithotripsy left FLUOROSCOPY TIME: 57.7 seconds Air Kerma: 14.6 mgy FINDINGS: Spot intraoperative C arm radiographs demonstrating left lithotripsy. IMPRESSION: Please refer to surgical report for detailed findings.
[2025-07-30] MEDS: SUCCINYLCHOLINE CHLORIDE 20 MG/ML 10ML VIAL IV ONE (17:12)
[2025-07-30] MEDS ORDERED: LATA0.008 EACHEYE (21:53)
[2025-07-30] MEDS ORDERED: DORZ2SOL18 EACHEYE (21:53)
[2025-07-30] MEDS: LISINOPRIL 20 MG TAB PO ONE (21:55)
[2025-07-31] VITALS (8 sets, daily range): BP systolic 0–154; BP diastolic 61–79; PULSE 63–80; RESP 17–20; TEMP 98.5–99.7; O2SAT 92–97
[2025-07-31 07:02] LABS: Anion Gap 14 (5-15); Carbon Dioxide 21 mmol/L (20-31); Chloride 105 mmol/L (98-107); Potassium 3.9 mmol/L (3.5-5.1); Sodium 140 mmol/L (136-145)
[2025-07-31 07:03] LABS: Calcium 8.7 mg/dL (8.7-10.4)
[2025-07-31 07:08] LABS: BUN/Creatinine Ratio 11.1 (10.0-20.0); Blood Urea Nitrogen 12 mg/dL (9-23); Glucose 95 mg/dL (74-106); Magnesium 1.8 mg/dL (1.6-2.6)
--- NOTE | 2025-07-31 07:40 | DVHPN2 ---
Progress Note - Dictate Date Seen: Jul 31, 2025 Medical Necessity Reason Pt with a Central, PICC or Fol: No vital signs Vital Sign Date Time Temp Pulse Resp B/P (MAP) Pulse Ox O2 Delivery O2 Flow Rate FiO2 07/31/25 05:00 98.7 69 18 145/79 (101) 97 98.7 07/30/25 20:00 Room Air* 0 21 Total Intake and Output 07/30/25 07/30/25 07/31/25 15:00 23:00 07:00 Intake Total 225 ml 0 ml 200 ml Output Total 100 ml 960 ml Balance 225 ml -100 ml -760 ml medications Current Medications Medications Dose Ordered Sig/Rasheed Route Start Time Stop Time Status Last Admin Dose Admin Acetaminophen/ Hydrocodone Bitart 1 tab Q4HP PRN PO 07/26/25 14:00 Ondansetron HCl 4 mg Q4HP PRN IV 07/26/25 14:00 Acetaminophen 650 mg Q6HP PRN PO 07/26/25 14:00 Morphine Sulfate 2 mg Q4HPRN PRN IV 07/26/25 14:45 Nitroglycerin 0.4 mg Q5MINP PRN SL 07/26/25 14:00 Morphine Sulfate 2 mg Q30M PRN IV 07/26/25 14:45 Ceftriaxone Sodium 50 ml @ 100 mls/hr DAILY@09 IV 07/28/25 09:00 07/30/25 14:09 Atenolol 50 mg DAILY PO 07/28/25 10:00 07/30/25 16:25 50 MG Lisinopril 40 mg DAILY PO 07/31/25 10:00 Amlodipine Besylate 10 mg DAILY PO 07/31/25 10:00 laboratory and microbiology Laboratory Tests 07/31/25 06:26 07/29/25 06:44 Test 07/31/25 06:26 Range/Units Serum Glucose 95 74-106 mg/dL Assessment/Plan Patient is a 79-year-old gentleman who was in the hospital for nephrostomy tube exchange. Reportedly, the nephrostomy tube was exchanged and later on the patient was going to be evaluated for elective procedure to be done next week. While waiting, the patient had episode of nonresponding. He was taken to emergency room and was admitted for that episode. Assessment has been encephalopathy. Reportedly, heart rate did go down to 47 and reportedly there was some hypotension. Cardiology is involved for cardiac aspects of care. Patient is known to our practice from outside. Does take 100 mg of atenolol daily as outpatient. He is recently diagnosed to have pulmonary hypertension (right ventricular systolic pressure was assessed by echocardiogram to be 49 mm Hg). Patient denies any chest pain. He does not recall the episode. As outpatient, recently had CT scan of the chest which actually reported questionable biliary duct stone. Not in acute distress. No JVD. Not using accessory muscles of breathing. No carotid bruit. No goiter. Lungs are clear to auscultation. Cardiac: Regular, no thrill/gallop. Abdomen is soft. Bowel sound is positive. There is no tenderness. There is no peripheral edema. Dorsalis pedis is 2+ bilateral. Past medical history includes hypertension, kidney stones, SLE, history of prostate surgery, history of left knee surgery, BPH, history of right kidney angiomyolipoma, SVT and recent diagnosis of pulmonary hypertension. Nuclear stress test of June 04, 2025 revealed normal perfusion, ejection fraction of 68% Left heart catheterization of 2016 revealed normal coronaries Echocardiogram of May 28, 2025 (performed in the office) revealed ejection fraction of 65-70%, abnormal relaxation of left ventricle, mild right atrial enlargement, mild mitral valve prolapse and right ventricular systolic pressure 49 mm Hg. WBC: 5.6 - 14.7 - 11.6 - 9.9 Hemoglobin: 13.5 - 11.9 - 11.8 - 11.4 D-dimer: 2.45 Potassium: 3.1 - 3.8 - 3.6 - 3.8 - 3.9 Creatinine: 1.33 - 1.28 - 1.10 - 1.16 - 1.08 Troponin (high sensitive): 64 - 66 - 65 Chest x-ray revealed: IMPRESSION: No acute cardiopulmonary disease CT of the head revealed: IMPRESSION: 1. No evidence of acute intracranial hemorrhage, mass effect or hydrocephalus. Carotid Doppler revealed: IMPRESSION: No hemodynamically significant stenosis noted in the right carotid system. No hemodynamically significant stenosis noted in the left carotid system. CTA of lungs revealed: Pulmonary artery: No pulmonary embolism Lower neck: Normal thyroid. Lungs: Bibasilar atelectasis. No focal consolidation, pleural effusion or pneumothorax. Heart/Vascular Structures: Normal heart size. No pericardial effusion. Lymph Nodes: No adenopathy Pleura: No pleural effusion or significant pneumothorax. Musculoskeletal: No acute osseous abnormality. Soft tissues: Normal. Upper abdomen: Left nephrolithiasis with left nephrostomy tube in place. IMPRESSION: 1. No V/Q scan revealed: IMPRESSION: Low probability for PE. CT of abdomen and pelvis revealed: IMPRESSION: 1. Mild left-sided hydronephrosis. 2. Left-sided nephroureteral tube appears to be in good position with distal tip in the urinary bladder. 3. Colonic diverticulosis without evidence of diverticulitis. Abdominal Ultrasound revealed: IMPRESSION: 1. Liver measures 16.4 cm with parenchymal changes consistent with steatosis. 2. Gallbladder is normal 3. Right kidney demonstrates stones cysts no hydronephrosis. 4. Left kidney demonstrated hydronephrosis seen well enough to measure because of bandaging. Venous duplex of lower ext: IMPRESSION: 1. No evidence of deep vein thrombosis. EKG revealed: NSR, RBBB Telemetry revealed sinus rhythm with bundle branch block Echocardiogram revealed: Left ventricle: Left ventricle is normal-sized with normal systolic function. LVEF was around 60%. There was no wall motion abnormality. Right ventricle was mildly dilated with preserved systolic function. Both atria were normal-sized. Aortic valve was trileaflet. There was no aortic stenosis/insufficiency. There was mild mitral and tricuspid regurgitation. There was trace pulmonary valve insufficiency. IVC was dilated with normal respiratory variation. There was no pericardial effusion. Right ventricular systolic pressure was assessed at 50 mm Hg. Patient presented to the hospital for elective nephrostomy tube exchange which was performed. Later on while waiting had altered mental status. Presentation is in favor of encephalopathy. Was found to have leukocytosis. Did have recent nephrostomy tube exchange. Metabolic encephalopathy could explain the presentation. Could be secondary to UTI/sepsis? Patient's troponin has been minimally elevated and flat. Presentation is not considered acute coronary syndrome. Is the abnormal troponin reflecting pulmonary hypertension? Is found to have abnormal D-dimer. Recognizing pulmonary hypertension, pulmonary emboli needs to be ruled out. CT angio of the lungs was negative for acute pulmonary emboli. We may consider V/Q scan to rule out the possibility of chronic pulmonary emboli. As outpatient, the patient was found to have questionable biliary duct stones. Could they be the etiology for leukocytosis? Patient did have hypokalemia on arrival. Could not explain some component of presentation? Did have mild sinus bradycardia on arrival. Had been on 100 mg of atenolol as outpatient which could have contributed to the bradycardia. Mild Bradycardia is not assessed to explain the presentation. Repeat imaging here (CT and sonogram) did not reveal any bile duct stone. Does have history of systemic lupus erythematosus. Can SLE explain encephalopathy? Encephalopathy, metabolic versus septic Altered mental status Sepsis Leukocytosis UTI? Kidney stone Biliary duct stones?, history of Abnormal troponin, demand physiology Pulmonary hypertension, history of, recent diagnosis SLE, history of s/p attempt of Nephrolithotripsy, inadequate (by Urology) Cardiac suggestion for management: Manage on telemetry Follow-up electrolytes and kidney function tests and correct abnormalities Keep potassium above 4 and magnesium above 2 Decreased dose of Atenolol: 50 mg daily for now (was 100 mg prior to admission) Cardiac wyman, patient is moderate risk patient for Moderate risk Urology procedure. Cardiac wyman, you can proceed with procedure under appropriate intra and post procedure hemodynamic monitoring. Avoid Hypotension. Urology follow up Evaluation and management of sepsis as per primary team You may consider Neurology evaluation for presentation Further evaluation and management depends on the above and clinical course. A total of 55 minutes was spent reviewing the patient record, examining the patient, making a diagnostic and therapeutic plan, discussing this plan with medical personnel, following up on diagnostic studies and following the patient for clinical stability excluding any and all procedures. At least 50% of this time was spent in direct, [id number] contact. Thank you for allowing me to participate in this patient's care. Further recommendations will depend on patient's clinical course. Please do not hesitate to contact me if you have any questions or concerns. This medical document was created using electronic medical record system with [employer] computerized dictation system. Although this document has been carefully reviewed, there may still be some phonetic and typographical errors. These areas are purely typographical due to the imperfection of the software programs, and do not reflect any compromise in the patient's medical care. Plan discussed with: Patient, Other (nurse) CHARLEY DUGGAN MD Jul 31, 2025 07:40
[2025-07-31] MEDS: LISINOPRIL 20 MG TAB PO SCH (09:05)
--- NOTE | 2025-07-31 10:18 | DVH ---
Exam: XY KUB ABDOMEN SINGLE VIEW Indication: Left renal stone Comparison: XY KUB ABDOMEN SINGLE VIEW on DOS: 07/30/25, US ABDOMEN LIMITED on DOS: 07/27/25, CT CT AB PEL WO CON-NO ORAL OR IV on DOS: 07/27/25, XY PERCUTANEOUS NEPHROSTOMY on DOS: 07/26/25 Technique: 1 radiographic views of the abdomen. Findings: Nonspecific bowel-gas pattern. Large volume colonic stool. Left nephrostomy drain in the left kidney. There is no definite evidence for pneumoperitoneum. No abnormal calcifications noted. Impression: Nonspecific bowel-gas pattern. Large volume colonic stool. Left nephrostomy drain in the left kidney.
--- NOTE | 2025-07-31 10:18 | DVHPN2 ---
Subjective He had PCNL trial yesterday but it failed due to lack of access He has hematuria in the left nephrostomy tube now Urine is clear in the [place] Changes from previous H/P or p: Changes Objective Vitals Vital Signs Date Time Temp Pulse Resp B/P (MAP) Pulse Ox O2 Delivery O2 Flow Rate FiO2 07/31/25 09:06 65 149/64 07/31/25 09:00 98.9 20 92 98.9 07/31/25 08:00 Room Air* 0 21 Intake/Output Intake and Output 07/31/25 07:00 Intake Total 425 ml Output Total 1060 ml Balance -635 ml Intake Oral 200 ml IV Total 225 ml Output Urine Total 550 ml Drainage Total 510 ml General Appearance: Alert, Oriented X3, Cooperative, No acute distress Lungs: Clear to auscultation, Normal air movement Cardiovascular: Regular rate, Normal S1, Normal S2, No murmurs Abdomen: Normal bowel sounds, Soft, No tenderness, No hepatospenomegaly Extremities: No edema Medications Current Medications Medications Dose Ordered Sig/Rasheed Route Start Time Stop Time Status Last Admin Dose Admin Acetaminophen/ Hydrocodone Bitart 1 tab Q4HP PRN PO 07/26/25 14:00 Ondansetron HCl 4 mg Q4HP PRN IV 07/26/25 14:00 Acetaminophen 650 mg Q6HP PRN PO 07/26/25 14:00 Morphine Sulfate 2 mg Q4HPRN PRN IV 07/26/25 14:45 Nitroglycerin 0.4 mg Q5MINP PRN SL 07/26/25 14:00 Morphine Sulfate 2 mg Q30M PRN IV 07/26/25 14:45 Ceftriaxone Sodium 50 ml @ 100 mls/hr DAILY@09 IV 07/28/25 09:00 07/31/25 09:06 100 MLS/HR Atenolol 50 mg DAILY PO 07/28/25 10:00 07/31/25 09:06 50 MG Lisinopril 40 mg DAILY PO 07/31/25 10:00 07/31/25 09:05 40 MG Amlodipine Besylate 10 mg DAILY PO 07/31/25 10:00 07/31/25 09:04 10 MG Laboratory Results Laboratory Tests 07/29/25 06:44 07/31/25 06:26 Chemistry Test 07/31/25 06:26 Calcium Level 8.7 mg/dL (8.7-10.4) Magnesium Level 1.8 mg/dL (1.6-2.6) Assessment/Plan Assessment/Plan Left nephrolithiasis status post nephrostomy tube Syncope Rule out PE Hypertension NSTEMI Rule out UTI Elevated D-dimer Hypokalemia Plan Consult Cardiology Dr. Quintana CTA of the lungs negative for PE Venous Doppler of the lower extremities to rule out DVT Get a urinalysis Urine bacterial culture Start IV Rocephin for possible underlying UTI IV fluids Replace potassium as needed Full code Advance directives discussed for 20 minutes 07/28/2025: Continue current management with IV Rocephin and IV fluids Urology consult for tomorrow Cardiology has seen the patient Imaging showed left hydronephrosis Hypomagnesemia: Correct p.o. 07/29/2025: Consult Urology V/Q scan and CT of the lungs are negative for PE Continue IV antibiotics Rocephin Discontinue IV fluids 07/30/2025: PCNL possibly today Cardiology cleared the patient for the procedure IV Rocephin Monitor closely 07/31/2025: Discussed with Dr. Lainez, he advised to remove the [place] catheter and continue to observe the patient in the hospital 1 more day until the hematuria resolves from the nephrostomy tube and then he is planning on doing a cystoscopy and a stent placement at a later time Continue IV antibiotics Monitor closely Plan discussed with: Patient, Spouse Date of Service: Jul 31, 2025 Billing Provider: CORRINA MORGAN MD Common Visit Codes: [id number] INP/OBS CARE(HIGH) CORRINA MORGAN MD Jul 31, 2025 10:18
[2025-08-01 01:00] VITALS: BP 130/55; PULSE 60; RESP 16; TEMP 98.2; TEMP 98.3; O2SAT 91
[2025-08-01 05:00] VITALS: BP 136/67; PULSE 62; RESP 17; TEMP 98.1; O2SAT 94
--- NOTE | 2025-08-01 07:36 | DVHPN2 ---
Progress Note - Dictate Date Seen: Aug 01, 2025 Medical Necessity Reason Pt with a Central, PICC or Fol: No vital signs Vital Sign Date Time Temp Pulse Resp B/P (MAP) Pulse Ox O2 Delivery O2 Flow Rate FiO2 08/01/25 05:00 98.1 62 17 136/67 (90) 94 98.1 07/31/25 20:00 Room Air* 0 21 Total Intake and Output 07/31/25 07/31/25 08/01/25 15:00 23:00 07:00 Intake Total 50 ml 400 ml 800 ml Output Total 275 ml 1200 ml Balance 50 ml 125 ml -400 ml medications Current Medications Medications Dose Ordered Sig/Rasheed Route Start Time Stop Time Status Last Admin Dose Admin Acetaminophen/ Hydrocodone Bitart 1 tab Q4HP PRN PO 07/26/25 14:00 Ondansetron HCl 4 mg Q4HP PRN IV 07/26/25 14:00 Acetaminophen 650 mg Q6HP PRN PO 07/26/25 14:00 Morphine Sulfate 2 mg Q4HPRN PRN IV 07/26/25 14:45 Nitroglycerin 0.4 mg Q5MINP PRN SL 07/26/25 14:00 Morphine Sulfate 2 mg Q30M PRN IV 07/26/25 14:45 Ceftriaxone Sodium 50 ml @ 100 mls/hr DAILY@09 IV 07/28/25 09:00 07/31/25 09:06 100 MLS/HR Atenolol 50 mg DAILY PO 07/28/25 10:00 07/31/25 09:06 50 MG Lisinopril 40 mg DAILY PO 07/31/25 10:00 07/31/25 09:05 40 MG Amlodipine Besylate 10 mg DAILY PO 07/31/25 10:00 07/31/25 09:04 10 MG laboratory and microbiology Laboratory Tests 07/31/25 06:26 07/29/25 06:44 Test 07/31/25 06:26 Range/Units Serum Glucose 95 74-106 mg/dL Assessment/Plan Patient is a 79-year-old gentleman who was in the hospital for nephrostomy tube exchange. Reportedly, the nephrostomy tube was exchanged and later on the patient was going to be evaluated for elective procedure to be done next week. While waiting, the patient had episode of nonresponding. He was taken to emergency room and was admitted for that episode. Assessment has been encephalopathy. Reportedly, heart rate did go down to 47 and reportedly there was some hypotension. Cardiology is involved for cardiac aspects of care. Patient is known to our practice from outside. Does take 100 mg of atenolol daily as outpatient. He is recently diagnosed to have pulmonary hypertension (right ventricular systolic pressure was assessed by echocardiogram to be 49 mm Hg). Patient denies any chest pain. He does not recall the episode. As outpatient, recently had CT scan of the chest which actually reported questionable biliary duct stone. Not in acute distress. No JVD. Not using accessory muscles of breathing. No carotid bruit. No goiter. Lungs are clear to auscultation. Cardiac: Regular, no thrill/gallop. Abdomen is soft. Bowel sound is positive. There is no tenderness. There is no peripheral edema. Dorsalis pedis is 2+ bilateral. Past medical history includes hypertension, kidney stones, SLE, history of prostate surgery, history of left knee surgery, BPH, history of right kidney angiomyolipoma, SVT and recent diagnosis of pulmonary hypertension. Nuclear stress test of June 04, 2025 revealed normal perfusion, ejection fraction of 68% Left heart catheterization of 2016 revealed normal coronaries Echocardiogram of May 28, 2025 (performed in the office) revealed ejection fraction of 65-70%, abnormal relaxation of left ventricle, mild right atrial enlargement, mild mitral valve prolapse and right ventricular systolic pressure 49 mm Hg. WBC: 5.6 - 14.7 - 11.6 - 9.9 Hemoglobin: 13.5 - 11.9 - 11.8 - 11.4 D-dimer: 2.45 Potassium: 3.1 - 3.8 - 3.6 - 3.8 - 3.9 Creatinine: 1.33 - 1.28 - 1.10 - 1.16 - 1.08 Troponin (high sensitive): 64 - 66 - 65 Chest x-ray revealed: IMPRESSION: No acute cardiopulmonary disease CT of the head revealed: IMPRESSION: 1. No evidence of acute intracranial hemorrhage, mass effect or hydrocephalus. Carotid Doppler revealed: IMPRESSION: No hemodynamically significant stenosis noted in the right carotid system. No hemodynamically significant stenosis noted in the left carotid system. CTA of lungs revealed: Pulmonary artery: No pulmonary embolism Lower neck: Normal thyroid. Lungs: Bibasilar atelectasis. No focal consolidation, pleural effusion or pneumothorax. Heart/Vascular Structures: Normal heart size. No pericardial effusion. Lymph Nodes: No adenopathy Pleura: No pleural effusion or significant pneumothorax. Musculoskeletal: No acute osseous abnormality. Soft tissues: Normal. Upper abdomen: Left nephrolithiasis with left nephrostomy tube in place. IMPRESSION: 1. No V/Q scan revealed: IMPRESSION: Low probability for PE. CT of abdomen and pelvis revealed: IMPRESSION: 1. Mild left-sided hydronephrosis. 2. Left-sided nephroureteral tube appears to be in good position with distal tip in the urinary bladder. 3. Colonic diverticulosis without evidence of diverticulitis. Abdominal Ultrasound revealed: IMPRESSION: 1. Liver measures 16.4 cm with parenchymal changes consistent with steatosis. 2. Gallbladder is normal 3. Right kidney demonstrates stones cysts no hydronephrosis. 4. Left kidney demonstrated hydronephrosis seen well enough to measure because of bandaging. Venous duplex of lower ext: IMPRESSION: 1. No evidence of deep vein thrombosis. EKG revealed: NSR, RBBB Telemetry revealed sinus rhythm with bundle branch block Echocardiogram revealed: Left ventricle: Left ventricle is normal-sized with normal systolic function. LVEF was around 60%. There was no wall motion abnormality. Right ventricle was mildly dilated with preserved systolic function. Both atria were normal-sized. Aortic valve was trileaflet. There was no aortic stenosis/insufficiency. There was mild mitral and tricuspid regurgitation. There was trace pulmonary valve insufficiency. IVC was dilated with normal respiratory variation. There was no pericardial effusion. Right ventricular systolic pressure was assessed at 50 mm Hg. Patient presented to the hospital for elective nephrostomy tube exchange which was performed. Later on while waiting had altered mental status. Presentation is in favor of encephalopathy. Was found to have leukocytosis. Did have recent nephrostomy tube exchange. Metabolic encephalopathy could explain the presentation. Could be secondary to UTI/sepsis? Patient's troponin has been minimally elevated and flat. Presentation is not considered acute coronary syndrome. Is the abnormal troponin reflecting pulmonary hypertension? Is found to have abnormal D-dimer. Recognizing pulmonary hypertension, pulmonary emboli needs to be ruled out. CT angio of the lungs was negative for acute pulmonary emboli. We may consider V/Q scan to rule out the possibility of chronic pulmonary emboli. As outpatient, the patient was found to have questionable biliary duct stones. Could they be the etiology for leukocytosis? Patient did have hypokalemia on arrival. Could not explain some component of presentation? Did have mild sinus bradycardia on arrival. Had been on 100 mg of atenolol as outpatient which could have contributed to the bradycardia. Mild Bradycardia is not assessed to explain the presentation. Repeat imaging here (CT and sonogram) did not reveal any bile duct stone. Does have history of systemic lupus erythematosus. Can SLE explain encephalopathy? Encephalopathy, metabolic versus septic Altered mental status Sepsis Leukocytosis UTI? Kidney stone Biliary duct stones?, history of Abnormal troponin, demand physiology Pulmonary hypertension, history of, recent diagnosis SLE, history of s/p attempt of Nephrolithotripsy, inadequate (by Urology) Cardiac suggestion for management: Manage on telemetry Follow-up electrolytes and kidney function tests and correct abnormalities Keep potassium above 4 and magnesium above 2 Decreased dose of Atenolol: 50 mg daily for now (was 100 mg prior to admission) Cardiac wyman, patient is moderate risk patient for Moderate risk Urology procedure. Cardiac wyman, you can proceed with procedure under appropriate intra and post procedure hemodynamic monitoring. Avoid Hypotension. Urology follow up Evaluation and management of sepsis as per primary team You may consider Neurology evaluation for presentation Further evaluation and management depends on the above and clinical course. A total of 55 minutes was spent reviewing the patient record, examining the patient, making a diagnostic and therapeutic plan, discussing this plan with medical personnel, following up on diagnostic studies and following the patient for clinical stability excluding any and all procedures. At least 50% of this time was spent in direct, [id number] contact. Thank you for allowing me to participate in this patient's care. Further recommendations will depend on patient's clinical course. Please do not hesitate to contact me if you have any questions or concerns. This medical document was created using electronic medical record system with [employer] dictation system. Although this document has been carefully reviewed, there may still be some phonetic and typographical errors. These areas are purely typographical due to the imperfection of the software programs, and do not reflect any compromise in the patient's medical care. Dietary Evaluation Review Comments: Nutrition Recommendation: 1) Consider 2gm Na diet 2) Monitor PO intake, lab values, weight trend, and I/O Expected Outcomes/Goals: To meet >75% estimated needs Fu 3-5 days Plan discussed with: Patient, Other (nurse) CHARLEY DUGGAN MD Aug 01, 2025 07:36
[2025-08-01 08:00] VITALS: PULSE 58; PULSE 64
[2025-08-01 09:00] VITALS: BP 155/64; PULSE 57; RESP 17; TEMP 97.5; O2SAT 95
--- NOTE | 2025-08-01 12:24 | DVHDS2 ---
Discharge Summary Date of Admission Jul 26, 2025 at 13:56 Date of Discharge: Aug 01, 2025 Labs/Diagnostic Data: Laboratory Results Test 07/31/25 06:26 07/30/25 09:24 07/29/25 06:44 07/28/25 08:52 Sodium Level 140 mmol/L (136-145) Potassium Level 3.9 mmol/L (3.5-5.1) Chloride Level 105 mmol/L (98-107) Carbon Dioxide Level 21 mmol/L (20-31) Anion Gap 14 (5-15) Blood Urea Nitrogen 12 mg/dL (9-23) Creatinine 1.08 mg/dL (0.700-1.30) Glomerular Filtration Rate Calc 70 mL/min (>90) BUN/Creatinine Ratio 11.1 (10.0-20.0) Serum Glucose 95 mg/dL (74-106) Calcium Level 8.7 mg/dL (8.7-10.4) Magnesium Level 1.8 mg/dL (1.6-2.6) Prothrombin Time 10.5 sec (9.3-11.8) Prothrombin Time INR 0.99 (0.9-1.15) White Blood Count 9.9 10^3/uL (4.4-10.8) Red Blood Count 3.44 10^6/uL (4.5-5.90) Hemoglobin 11.4 g/dL (13.5-17.5) Hematocrit 32.8 % (41.0-53.0) Mean Corpuscular Volume 95.3 fL (80.0-100.0) Mean Corpuscular Hemoglobin 33.2 pg (28.0-32.0) Mean Corpuscular Hemoglobin Concent 34.8 g/dL (32.0-36.0) Red Cell Distribution Width 15.7 % (11.8-14.3) Platelet Count 148 10^3/uL (140-450) Mean Platelet Volume 9.6 fL (6.9-10.8) Neutrophils (%) (Auto) 78.6 % (37.0-80.0) Lymphocytes (%) (Auto) 8.3 % (10.0-50.0) Monocytes (%) (Auto) 11.5 % (0.0-12.0) Eosinophils (%) (Auto) 1.3 % (0.0-7.0) Basophils (%) (Auto) 0.3 % (0.0-2.0) Neutrophils # (Auto) 7.8 10 ^3/uL (1.6-8.6) Lymphocytes # (Auto) 0.8 10 ^3/uL (0.4-5.4) Monocytes # (Auto) 1.1 10 ^3/uL (0-1.3) Eosinophils # (Auto) 0.1 10 ^3/uL (0-0.8) Basophils # (Auto) 0 10 ^3/uL (0-0.2) Nucleated Red Blood Cells 0.0 % Total Bilirubin 0.7 mg/dL (0.2-1.0) Aspartate Amino Transferase (AST) 22 U/L (13-40) Alanine Aminotransferase (ALT) 16 U/L (7-40) Alkaline Phosphatase 80 U/L (46-116) Total Protein 6.4 g/dL (5.7-8.2) Albumin 3.6 g/dL (3.2-4.8) Test 07/28/25 06:38 07/28/25 06:35 07/26/25 16:30 07/26/25 13:00 Differential Total Cells Counted 100.0 (100) Neutrophils % (Manual) 80 (37.0-80.0) Band Neutrophils % (Manual) 4 Lymphocytes % (Manual) 4 (10.0-50.0) Monocytes % (Manual) 11 (0-12) Eosinophils % (Manual) 1 (0-7) Basophils % (Manual) 0 (0.0-2.0) Metamyelocytes % (manual) 0 Myelocytes % (Manual) 0 Promyelocytes % (Manual) 0 Blast Cells % (Manual) 0 Reactive Lymphocytes 0 Platelet Estimate Decreased Anisocytosis (manual) Slight POC Glucose 111 mg/dl (70-106) Troponin I High Sensitivity 65 ng/L (</=54) D-Dimer, Quantitative 2.45 mg/L FEU (0.0-0.49) Hemoglobin A1c 5.4 % A1C (<5.7) Other Laboratory Tests 07/31/25 06:26 07/29/25 06:44 Brief Hx & Hospital Course: Final diagnoses: Left nephrolithiasis status post nephrostomy tube Status post attempted PCNL, not succeeded Syncope due to acute kidney injury Acute kidney injury due to vasomotor nephropathy Pulmonary embolism was ruled out Hypertension NSTEMI type 2 Most likely UTI Elevated D-dimer no DVT or PE Hypokalemia Hypomagnesemia Left hydronephrosis due to left nephrolithiasis Pulmonary hypertension History of SLE Sepsis due to most likely UTI Metabolic encephalopathy due to UTI and sepsis He was admitted on IV antibiotics and was seen by Urology and he needed PCNL however he also needed cardiology consultation and clearance first and therefore he was seen by Dr. Quintana who recommended workup with CT angiography and extremity venous study which were negative for thromboembolism. He also had a V/Q scan of the lungs which was low probability for pulmonary embolism, echocardiogram was done showed ejection fraction 60% with right ventricular systolic pressure at 50 After the cardiology clearance the patient was taken by Urology to do PCNL but it was not successful therefore he had a replace nephrostomy tube, it was with hematuria yesterday but today is clear Urology has seen the patient again and recommended to discontinue the Noland catheter and send the patient home now to follow up as an outpatient for cystoscopy and stent as an outpatient The patient is stable for discharge with the left nephrostomy tube Follow up with Dr. Lainez in 1-2 weeks Resume home medications Cipro for 5 days Condition at Discharge: Stable Final Diagnosis/Problems List Left nephrolithiasis status post nephrostomy tube Status post attempted PCNL, not succeeded Syncope due to acute kidney injury Acute kidney injury due to vasomotor nephropathy Pulmonary embolism was ruled out Hypertension NSTEMI type 2 Most likely UTI Elevated D-dimer no DVT or PE Hypokalemia Hypomagnesemia Left hydronephrosis due to left nephrolithiasis Pulmonary hypertension History of SLE Sepsis due to most likely UTI Metabolic encephalopathy due to UTI and sepsis Discharge Disposition: Home SNF Discharge Will this Physician continue t: No Discharge Instruct/Medications Scheduled Amlodipine Besylate (Amlodipine Besylate), 10 MG OR DAILY, (Reported) Atenolol (Atenolol), 100 MG OR DAILY, (Reported) Folic Acid (Folic Acid), 1 MG PO DAILY, (Reported) Hydrochlorothiazide (Hydrochlorothiazide), 25 MG OR DAILY, (Reported) Hydroxychloroquine Sulfate (Hydroxychloroquine Sulfat), 200 MG PO DAILY, (Reported) Lisinopril (Lisinopril), 40 MG OR DAILY, (Reported) Methotrexate (Methotrexate), 4 TAB PO QWEEKLY, (Reported) Tadalafil (Cialis), 10 MG PO DAILY, (Reported) Miscellaneous Medications Dorzolamide-Timolol (Dorzolamide Hcl/Timolol M), MICHELLE, (Reported) Latanoprost (Latanoprost), MICHELLE, (Reported) Discharge Statement: "Patient was advised to return to the ER or call 911 if any headaches, dizziness, shortness of breath, chest pain, abdominal pain, bleeding, fevers, or worsening of medical condition. Patient was counseled about treatment plan, medications, possible side effects, patientverbalized understanding. All questions were answered to the best of my ability. This discharge took greater then 30 minutes in planning, reviewing documentation, counseling the patient, and discussing with other team members." ASSESSMENT ASSESSMENT Assessment Date of Service: Aug 01, 2025 Billing Provider: CORRINA MORGAN MD Common Visit Codes: 34797-IXC/OBS DISCH DAY >30min CORRINA MORGAN MD Aug 01, 2025 12:24
[2025-08-01] MEDS ORDERED: CIPR-273 PO (12:25)
[2025-08-01 13:00] VITALS: BP 129/66; PULSE 63; RESP 18; TEMP 97.9; O2SAT 96
[2025-08-01] MEDS ORDERED: CLOP75TA28 PO (13:24)
[2025-08-01] MEDS ORDERED: LOSA-533 PO (13:24)
[2025-08-01] MEDS ORDERED: GABA-1250 PO (13:24)
[2025-08-01] MEDS ORDERED: MIRT-93 PO (13:24)
[2025-08-01] MEDS ORDERED: ATOR20TA PO (13:24)
[2025-08-01] MEDS ORDERED: ASPI1TAB20 PO (13:24)
[2025-08-01] MEDS ORDERED: RISP2TAB62 PO (13:24)
[2025-08-01 14:13] VITALS: BP 134/74; PULSE 64; RESP 16; TEMP 97.5; O2SAT 95
[2025-08-02 01:06] LABS: PTT-LA 31.3 sec (0.0-43.5)
== END 2025-08-01 15:40 | disposition home or self-care (01) | DRG 871 ==
LOC: ER 12:57 → OVERFLOW 13:56 → TELE-EAST 15:41
PROVIDERS: ADMIT Internal Medicine Geriatric Medicine; ATTEND Internal Medicine Geriatric Medicine
PROC: 0TJB8ZZ Inspection of Bladder, Via Natural or Artificial Opening Endoscopic (ICD-10-PCS; 2025-07-30)
PROC: 0T9130Z Drainage of Left Kidney with Drainage Device, Percutaneous Approach (ICD-10-PCS; principal; 2025-07-30 14:08)
DX: A41.9 Sepsis, unspecified organism (principal); G93.41 Metabolic encephalopathy; J96.01 Acute respiratory failure with hypoxia; N17.0 Acute kidney failure with tubular necrosis; I21.A1 Myocardial infarction type 2; J98.11 Atelectasis; N13.6 Pyonephrosis; R73.9 Hyperglycemia, unspecified; G90.89 Other disorders of autonomic nervous system; I10 Essential (primary) hypertension; E87.6 Hypokalemia; E83.42 Hypomagnesemia; I27.20 Pulmonary hypertension, unspecified; I34.1 Nonrheumatic mitral (valve) prolapse; F10.90 Alcohol use, unspecified, uncomplicated; Y90.9 Presence of alcohol in blood, level not specified; K57.30 Diverticulosis of large intestine without perforation or abscess without bleeding; M32.9 Systemic lupus erythematosus, unspecified; Z79.899 Other long term (current) drug therapy; Z82.49 Family history of ischemic heart disease and other diseases of the circulatory system; Z87.442 Personal history of urinary calculi; Z87.891 Personal history of nicotine dependence; Z93.6 Other artificial openings of urinary tract status
CPT/HCPCS: 36415; 70450; 71045; 71275; 74018; 74176; 74425; 76000; 76705; 76942; 78582; 80048; 80053; 82962; 83036; 83735; 84484; 85007; 85025; 85027; 85379; 85610; 85613; 85670; 85705; 85730; 85732; 86850; 86900; 86901; 93005; 93306; 93886; 93970; 99152; 99291; G0378; J0330; J2250; J2405; J2704